=== PATIENT | female | born 1960 | race Caucasian/White ===

== ENCOUNTER 2017-08-10 14:52 | Inpatient (IN) | payer OTHER ==
[2017-08-10 15:10] LABS: Glucose,Whole Blood 487 mg/dL (75-99)
[2017-08-10] MEDS ORDERED: SODIUM CHLORIDE 0.9% 2,000 ML IV ONE (15:26)
[2017-08-10] MEDS ORDERED: POTASSIUM BICARBONATE/CIT AC 20 MEQ TABLET.EFF PO ONE (15:29)
[2017-08-10] MEDS ORDERED: SODIUM CHLORIDE 0.9% 1,000 ML IV SCH (15:30)
--- NOTE | 2017-08-10 15:39 | ED ---
General Adult HPI - General Chief complaint: Recheck/Abnormal Lab/Rx Stated complaint: glucose level, DKA Time Seen by Provider: 08/10/17 15:18 Source: patient, EMS Mode of arrival: EMS Limitations: no limitations - History of Present Illness Initial comments: 27 years O female was transferred from the [facility], ER doctor Dr. Love stated that her sugar was greater than 1000 that she has no history of for diabetes in the past hemoglobin A1c done back in October year was 5.8 she recently had a surgery done September she had some teeth extraction she was fine until yesterday when she felt weak and dizzy and she was seen in the [place] over that they noticed that sugar was greater than 1000 white count was greater than 15,000 chest x-ray was unremarkable creatinine was 1.8 this started on insulin infusion give her some fluids along with the antibiotics bicarb with a was 4 in pH was 7.01 to that EKG had some changes this spoke to Dr. Douglas when we did the EKG INR department but didn't see any ST elevation there is a ST depression in lead V4 V5 and V6 along with the V2 and V3 she denies any headaches he just feels thirsty no chest pain or shortness of breath she had abdominal pain earlier but now she feels better - Related Data Home Medications Medication Instructions Recorded Confirmed Amoxicillin 875 mg PO Q12HR 08/10/17 08/10/17 Ibuprofen [Motrin] 800 mg PO BID PRN 08/10/17 08/10/17 Allergies Allergy/AdvReac Type Severity Reaction Status Date / Time No Known Allergies Allergy Verified 08/10/17 15:54 Review of Systems ROS Statement: Those systems with pertinent positive or pertinent negative responses have been documented in the HPI. ROS Other: All systems not noted in ROS Statement are negative. Past Medical History Past Medical History: Hyperlipidemia, Hypertension History of Any Multi-Drug Resistant Organisms: None Reported Past Surgical History: No Surgical Hx Reported Additional Past Surgical History / Comment(s): dental surgery Past Psychological History: No Psychological Hx Reported Smoking Status: Former smoker Past Alcohol Use History: None Reported Past Drug Use History: None Reported General Exam - General Exam Comments Initial Comments: General: The patient is awake , I could smell ketones on her breath she looks dehydrated GCS is 15 Skin: Skin is warm and dry and no rashes or lesions are noted. Eye: Pupils are equal, round and reactive to light, extra-ocular movements are intact; there is normal conjunctiva bilaterally. Ears, nose, mouth and throat: There are moist mucous membranes and no oral lesions. Neck: The neck is supple, there is no tenderness or JVD. Cardiovascular: There is sinus tachycardia Respiratory: To auscultation bilateral, no wheezing no rhonchi no distress respiratory park noticed Gastrointestinal: Soft, non-distended, non-tender abdomen without masses or organomegaly noted. There is no rebound or guarding present. Bowel sounds are unremarkable. Back: There is no tenderness to palpation in the midline. There is no obvious deformity. Musculoskeletal: Normal ROM, no tenderness, There is no pedal edema. There is no calf tenderness or swelling. No cords were appreciated. Neurological: CN II-XII intact, Cranial nerves III through XII are intact. There are no obvious motor or sensory deficits. Coordination appears grossly intact. Speech is normal. Psychiatric: Cooperative, appropriate mood & affect, normal judgment. Limitations: no limitations Course Vital Signs 08/10/17 08/10/17 08/10/17 14:59 15:16 15:43 Temperature 97.9 F Pulse Rate 112 H 106 H Pulse Rate [ 112 H Sketcher ] Respiratory 20 22 22 Rate Blood Pressure 125/75 O2 Sat by Pulse 99 Oximetry I am EKG is sinus tachycardia ventricular rate is 110 FL interval is 126 QRS duration is 74 QT/QTC 364/492 review of this EKG there is a ST depression in V2 V3 V4 V5 and V6 no STEMI noticed, repeat ABGs are somewhat better pH is 7.22 bicarb is 7 this time and rest of the labs are still pending [facility] and spoke with the DR Roopa Johnson,, have paged Dr. Mcdonough would need to go to the ICU Medical Decision Making - Lab Data Lab Results 08/10/17 08/10/17 08/10/17 Range/Units 15:01 15:30 15:49 Sample Site r brac ABG pH 7.22 L (7.35-7.45) ABG pCO2 17 L* (35-45) mmHg ABG pO2 105 (83-108) mmHg ABG HCO3 7 L* (21-25) mmol/L ABG Total CO2 8 L (19-24) mmol/L ABG O2 Saturation 98.7 H (94-97) % ABG Base Excess -20.6 mmol/L Chris Test Yes FiO2 21 % POC Glucose (mg/dL) 487 H (75-99) mg/dL POC Glu [employer] ID Nolberto Davis Urine Color Light Yellow Urine Appearance Clear (Clear) Urine pH 5.0 (5.0-8.0) Ur Specific [place] 1.023 (1.001-1.035) Urine Protein 1+ H (Negative) Urine Glucose (UA) 4+ H (Negative) Urine Blood Moderate H (Negative) Urine Nitrite Negative (Negative) Urine Bilirubin Negative (Negative) Urine Urobilinogen <2.0 (<2.0) mg/dL Ur Leukocyte Esterase Negative (Negative) Urine RBC 18 H (0-5) /hpf Urine WBC 1 (0-5) /hpf Urine Bacteria Rare H (None) /hpf Urine Mucus Rare H (None) /hpf Disposition Clinical Impression: Diabetic ketoacidosis Disposition: ADMITTED IP TO THIS [facility] Condition: Good Referrals: None,Stated [REFERRING] - 1-2 days
[2017-08-10 15:54] LABS: ABG Base Excess -20.6 mmol/L; ABG Oxygen Saturation 98.7 % (94-97); ABG PH 7.22 (7.35-7.45); ABG PO2 105 mmHg (83-108); ABG TCO2 8 mmol/L (19-24)
[2017-08-10 15:55] LABS: Appearance,Urine Clear (Clear); Bacteria,Urine Rare /hpf; Bilirubin,Urine Negative (Negative); Blood,Urine Moderate (Negative); Color,Urine Light Yellow; Glucose,Urine (UA) 4+ (Negative); Leukocyte Esterase,Urine Negative (Negative); Mucus,Urine Rare /hpf; Nitrite,Urine Negative (Negative); Protein,Urine 1+ (Negative); RBC,Urine 18 /hpf (0-5); Specific Gravity,Urine 1.023 (1.001-1.035); Urobilinogen,Urine <2.0 mg/dL (<2.0); WBC,Urine 1 /hpf (0-5)
[2017-08-10 15:55] LABS: ABG HCO3 7 mmol/L (21-25); ABG PCO2 17 mmHg (35-45)
[2017-08-10] MEDS: INSULIN REGULAR 100 UNIT in SODIUM CHLORIDE 0.9% 100 ML IV ONE (16:01)
[2017-08-10 16:07] LABS: Glucose,Whole Blood 431 mg/dL (75-99)
[2017-08-10] MEDS ORDERED: NALOXONE 0.4 MG/ML 1 ML VIAL IV PRN (16:08)
[2017-08-10] MEDS ORDERED: ACETAMINOPHEN TAB 325 MG TAB PO PRN (16:08)
[2017-08-10 16:11] LABS: Ketones,Urine 4+ (Negative)
[2017-08-10 16:25] LABS: Albumin 3.8 g/dL (3.5-5.0); Calcium 8.7 mg/dL (8.4-10.2); Potassium 4.5 mmol/L (3.5-5.1); Total Bilirubin 0.3 mg/dL (0.2-1.3); Total Protein 6.4 g/dL (6.3-8.2)
[2017-08-10 16:37] LABS: Magnesium 2.8 mg/dL (1.6-2.3); Phosphorus 2.4 mg/dL (2.5-4.5)
[2017-08-10 16:59] LABS: Glucose,Whole Blood 429 mg/dL (75-99)
[2017-08-10 16:59] LABS: Basophils % (A) 0 %; Eosinophils % (A) 0 %; HCT 47.7 % (34.0-46.0); HGB 15.7 gm/dL (11.4-16.0); Lymphocytes # (A) 1.5 k/uL (1.0-4.8); Lymphocytes % (A) 12 %; MCH 30.2 pg (25.0-35.0); MCHC 32.9 g/dL (31.0-37.0); MCV 91.9 fL (80.0-100.0); Mean Platelet Volume 8.2; Monocytes # (A) 0.9 k/uL (0-1.0); Monocytes % (A) 7 %; Neutrophils # (A) 10.4 k/uL (1.3-7.7); Neutrophils % (A) 80 %; Platelet Count 191 k/uL (150-450); RBC 5.19 m/uL (3.80-5.40); RDW 14.3 % (11.5-15.5); WBC 12.9 k/uL (3.8-10.6)
[2017-08-10] MEDS: SODIUM CHLORIDE 0.45% 1,000 ML IV SCH ×2 (17:00→23:33)
[2017-08-10 17:21] LABS: Glucose,Whole Blood 401 mg/dL (75-99)
[2017-08-10] MEDS ORDERED: SODIUM CHLORIDE 0.45% 1,000 ML IV SCH (17:30)
[2017-08-10 18:44] LABS: Glucose,Whole Blood 370 mg/dL (75-99)
[2017-08-10] MEDS: PANTOPRAZOLE 40 MG/10 ML VIAL IV SCH (19:09)
[2017-08-10] MEDS: HEPARIN SODIUM,PORCINE 5,000 UNIT/ML 1 ML VIAL SQ SCH ×2 (19:09→23:53)
[2017-08-10 20:02] LABS: Glucose,Whole Blood 315 mg/dL (75-99)
--- NOTE | 2017-08-10 20:20 | HP ---
HISTORY AND PHYSICAL CHIEF COMPLAINTS: High blood sugars. HISTORY OF PRESENT ILLNESS: This 57-year-old woman with a past medical history of multiple medical problems, including hypertension, hyperlipidemia being followed by Dr. Enciso in the outpatient setting was admitted with high blood sugar to [facility]. The sugars are more than 1000 and hemoglobin A1c last October was about 5.8. The patient is feeling weak and dizzy. The patient is on insulin drip. Patient also has features of diabetic ketoacidosis. Patient also had EKG ST-T changes and patient admitted for further evaluation and treatment there is no history of any fever, rigors, chills. No history of headache, loss of consciousness, seizures at this time. PAST MEDICAL HISTORY: History of hypertension, hyperlipidemia, history of dental surgery recently. Patient is on amoxicillin. HOME MEDICATIONS: 1. Motrin 800 mg b.i.d. p.r.n. 2. Amoxicillin 875 mg p.o. b.i.d. ALLERGIES: None. FAMILY HISTORY: No history of heart disease or strokes. SOCIAL HISTORY: Remote history of smoking. No history of alcohol intake. REVIEW OF SYSTEMS: ENT: Mentioned earlier. CARDIOVASCULAR: No angina, palpitations. RESPIRATORY: No cough or hemoptysis. GI: No nausea or vomiting. : No dysuria. NERVOUS: No numbness or weakness. ALLERGY/IMMUNOLOGY: No asthma or hay fever. MUSCULOSKELETAL: As mentioned earlier. HEMATOLOGY/ONCOLOGY: No history of anemia. ENDOCRINE: Diabetes mellitus. CONSTITUTIONAL: As mentioned earlier. DERMATOLOGY: Negative. RHEUMATOLOGY: Negative. PSYCHIATRY: As mentioned earlier. PHYSICAL EXAMINATION: Alert, oriented x3. Pulse 101, blood pressure 102/66, respirations 28, temperature 97.7, pulse ox 97% on room air. HEENT: Conjunctivae normal. Oral mucosa moist. NECK: No jugular venous distention. No carotid bruits. No lymph node enlargement. CARDIOVASCULAR: S1, S2 muffled. RESPIRATORY: Breath sounds diminished in the bases. A few scattered rhonchi. No crackles. ABDOMEN: Soft, nontender. No mass palpable. LEGS: No edema. No swelling. NERVOUS SYSTEM: Higher functions as mentioned earlier. Moves all 4 limbs. No focal motor or sensory deficits. LYMPHATIC: No lymphadenopathy in neck or axillae. SKIN: No ulcer, rash or bleeding. LABS: WBC 12.9. ABG is 7.2. Sodium is 163; otherwise, glucose 511 and magnesium 2.8. AST 72, ALT is 257. ASSESSMENT: 1. Acute diabetic ketoacidosis as well as new onset poorly-controlled diabetes mellitus type 2. 2. Metabolic acidosis. 3. Hypernatremia, dehydration. 4. ST-T changes on the EKG. 5. Increased creatinine with mild acute renal failure, possibly prerenal acute tubular necrosis. 6. Increased AST, ALT of undetermined etiology. 7. Hypernatremia. 8. Increased WBC. 9. History of hypertension. 10.Hyperlipidemia. 11.History of recent oral surgery. RECOMMENDATION AND DISCUSSION: In this 57-year-old woman who presented with multiple complex medical issues, will monitor the patient closely. Continue with the current medical management and symptomatic treatment. Otherwise will continue with the DKA protocol. Repeat labs. Continue the 0.9 at half normal. Would also recommend this also. I would also recommend an EKG as well as cardiology consultation for ST-T changes in the EKG. Otherwise, the initial troponin is negative. I would also recommend repeat labs. DVT prophylaxis and proton pump inhibitors and repeat chest x-ray in the morning. Resume the antibiotics as before. Prognosis guarded because of multiple complex medical issues and further recommendations were discussed with the family at length. A copy of this dictation will be forwarded to Dr. Enciso, who is the primary physician. TIFFANIE / KAHLILN: [id number] /
[2017-08-10] MEDS: AMOXICILLIN 875 MG TAB PO SCH (21:05)
[2017-08-10 21:09] LABS: Glucose,Whole Blood 269 mg/dL (75-99)
[2017-08-10 21:31] LABS: Anion Gap 21 mmol/L; Blood Urea Nitrogen 28 mg/dL (7-17); Calcium 8.5 mg/dL (8.4-10.2); Carbon Dioxide 14 mmol/L (22-30); Glucose 305 mg/dL (74-99); Magnesium 2.6 mg/dL (1.6-2.3); Phosphorus 1.8 mg/dL (2.5-4.5); Potassium 4.2 mmol/L (3.5-5.1); Sodium 161 mmol/L (137-145)
[2017-08-10 21:32] LABS: Chloride 126 mmol/L (98-107)
[2017-08-10 22:32] LABS: Glucose,Whole Blood 244 mg/dL (75-99)
[2017-08-10 23:03] LABS: Hemoglobin A1C 11.4 % (4.0-6.0)
[2017-08-10 23:09] LABS: Glucose,Whole Blood 185 mg/dL (75-99)
[2017-08-10] MEDS: D5-0.45% NACL WITH KCL 20MEQ/L 1,000 ML IV SCH (23:33)
[2017-08-10 23:59] LABS: Glucose,Whole Blood 169 mg/dL (75-99)
[2017-08-11 00:41] LABS: Anion Gap 19 mmol/L; Blood Urea Nitrogen 28 mg/dL (7-17); Calcium 8.7 mg/dL (8.4-10.2); Carbon Dioxide 16 mmol/L (22-30); Glucose 187 mg/dL (74-99); Magnesium 2.5 mg/dL (1.6-2.3); Potassium 4.1 mmol/L (3.5-5.1)
[2017-08-11 00:44] LABS: Chloride 128 mmol/L (98-107); Sodium 163 mmol/L (137-145)
[2017-08-11 01:25] LABS: Glucose,Whole Blood 173 mg/dL (75-99)
[2017-08-11 02:19] LABS: Glucose,Whole Blood 156 mg/dL (75-99)
[2017-08-11] MEDS: SODIUM CHLORIDE 0.45% 1,000 ML IV SCH ×2 (02:45→07:25)
[2017-08-11] MEDS: POTASSIUM PHOSPHATE 10 MMOL in SODIUM CHLORIDE 0.9% 250 ML IV SCH ×2 (04:24→06:30)
[2017-08-11 04:28] LABS: Glucose,Whole Blood 100 mg/dL (75-99)
[2017-08-11] MEDS: D5-0.45% NACL WITH KCL 20MEQ/L 1,000 ML IV SCH (04:30)
[2017-08-11] MEDS: INSULIN REGULAR 100 UNIT in SODIUM CHLORIDE 0.9% 100 ML IV ONE (04:30)
[2017-08-11 05:09] LABS: Glucose,Whole Blood 115 mg/dL (75-99)
[2017-08-11 05:23] LABS: Basophils % (A) 0 %; Eosinophils # (A) 0.1 k/uL (0-0.7); Eosinophils % (A) 1 %; HCT 45.3 % (34.0-46.0); HGB 14.8 gm/dL (11.4-16.0); Lymphocytes # (A) 1.7 k/uL (1.0-4.8); Lymphocytes % (A) 17 %; MCH 29.4 pg (25.0-35.0); MCHC 32.7 g/dL (31.0-37.0); MCV 89.8 fL (80.0-100.0); Mean Platelet Volume 7.6; Monocytes # (A) 0.5 k/uL (0-1.0); Monocytes % (A) 4 %; Neutrophils # (A) 7.8 k/uL (1.3-7.7); Neutrophils % (A) 76 %; Platelet Count 163 k/uL (150-450); RBC 5.04 m/uL (3.80-5.40); RDW 14.5 % (11.5-15.5); WBC 10.3 k/uL (3.8-10.6)
[2017-08-11 05:35] LABS: Anion Gap 16 mmol/L; Blood Urea Nitrogen 26 mg/dL (7-17); Calcium 8.5 mg/dL (8.4-10.2); Carbon Dioxide 17 mmol/L (22-30); Glucose 126 mg/dL (74-99); Magnesium 2.5 mg/dL (1.6-2.3); Phosphorus 2.2 mg/dL (2.5-4.5); Potassium 4.1 mmol/L (3.5-5.1)
[2017-08-11 05:46] LABS: Chloride 128 mmol/L (98-107); Sodium 161 mmol/L (137-145)
[2017-08-11 06:28] LABS: Glucose,Whole Blood 134 mg/dL (75-99)
--- NOTE | 2017-08-11 07:16 | XR ---
EXAMINATION TYPE: XR chest 1V portable DATE OF EXAM: 08/11/2017 HISTORY: chf. REFERENCE: NONE. FINDINGS: The lungs are clear. Pleural spaces are clear. The heart is not enlarged. IMPRESSION: NO ACTIVE INTRATHORACIC DISEASE.
[2017-08-11 07:23] LABS: Glucose,Whole Blood 182 mg/dL (75-99)
[2017-08-11 07:59] LABS: ALT 296 U/L (9-52); AST 129 U/L (14-36); Albumin 3.1 g/dL (3.5-5.0); Alkaline Phosphatase 159 U/L (38-126); Anion Gap 15 mmol/L; Blood Urea Nitrogen 27 mg/dL (7-17); Calcium 8.4 mg/dL (8.4-10.2); Carbon Dioxide 15 mmol/L (22-30); Glucose 127 mg/dL (74-99); Potassium 4.1 mmol/L (3.5-5.1); Total Bilirubin 0.3 mg/dL (0.2-1.3); Total Protein 5.8 g/dL (6.3-8.2)
[2017-08-11 08:04] LABS: Chloride 131 mmol/L (98-107); Sodium 161 mmol/L (137-145)
[2017-08-11 08:19] LABS: Glucose,Whole Blood 240 mg/dL (75-99)
[2017-08-11 09:09] LABS: Glucose,Whole Blood 293 mg/dL (75-99)
[2017-08-11] MEDS: HEPARIN SODIUM,PORCINE 5,000 UNIT/ML 1 ML VIAL SQ SCH ×2 (09:09→15:27)
[2017-08-11] MEDS: AMOXICILLIN 875 MG TAB PO SCH ×2 (09:09→20:19)
[2017-08-11] MEDS: PANTOPRAZOLE 40 MG/10 ML VIAL IV SCH (09:11)
[2017-08-11 11:23] LABS: Glucose,Whole Blood 322 mg/dL (75-99)
--- NOTE | 2017-08-11 12:32 | P.CRDCN ---
History of Present Illness Consult date: 08/11/17 Chief complaint: Generalized weakness History of present illness: This is a pleasant 57-year-old female patient from [facility] was brought to the hospital and was admitted with diabetes ketoacidosis. The patient was just not feeling well where she was feeling tired and fatigued and also she was weak. She presented to the hospital and was diagnosed with diabetes ketoacidosis and she is currently in the intensive care unit. The patient is not aware of any prior history of coronary artery disease and the diabetes is known to her. We get involved in the care of the patient because of abnormal EKG. 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 More importantly, the patient did not have any symptoms of chest pain or discomfort nor difficulty breathing nor dizziness or lightheadedness. The cardiac enzymes were checked and came in to be unremarkable. Currently she is feeling overall better. She continues to be asymptomatic from a cardiovascular standpoint. Past Medical History Past Medical History: Hyperlipidemia, Hypertension History of Any Multi-Drug Resistant Organisms: None Reported Past Surgical History: No Surgical Hx Reported Additional Past Surgical History / Comment(s): dental surgery Smoking Status: Former smoker - Past Family History Sister(s) Family Medical History: Diabetes Mellitus Medications and Allergies Home Medications Medication Instructions Recorded Confirmed Type Amoxicillin 875 mg PO Q12HR 08/10/17 08/10/17 History Ibuprofen [Motrin] 800 mg PO BID PRN 08/10/17 08/10/17 History Allergies Allergy/AdvReac Type Severity Reaction Status Date / Time No Known Allergies Allergy Verified 08/10/17 15:54 Physical Exam Vitals: Vital Signs Temp Pulse Pulse Resp BP Pulse Ox 08/11/17 11:00 81 21 84/40 97 08/11/17 10:00 75 17 85/41 99 08/11/17 09:00 81 24 96/44 96 08/11/17 08:00 97.9 F 84 21 83/46 99 08/11/17 07:00 81 11 L 119/71 100 08/11/17 06:00 78 25 H 94/48 96 08/11/17 05:00 87 22 86/54 98 08/11/17 04:00 98.6 F 86 22 94/53 98 08/11/17 03:00 86 16 100/73 97 08/11/17 02:00 89 20 107/49 97 08/11/17 01:00 93 23 106/55 96 08/11/17 00:01 102 H 20 110/46 98 08/11/17 00:00 98.5 F 102 H 10 L 110/46 99 08/10/17 23:30 98 22 95/54 08/10/17 23:00 96 28 H 96/48 08/10/17 22:30 92 17 104/55 08/10/17 22:00 90 13 100/47 08/10/17 21:00 95 23 105/54 08/10/17 20:00 109 H 13 105/62 91 L 08/10/17 19:00 97 24 112/51 98 08/10/17 18:45 96 18 112/53 99 08/10/17 18:30 98 19 99 08/10/17 18:15 101 H 28 H 99 08/10/17 18:00 97.7 F 104 H 26 H 102/66 100 08/10/17 17:50 97.7 F 103 H 24 102/66 100 08/10/17 17:06 97.2 F L 103 H 20 114/56 99 08/10/17 17:00 112 H 19 08/10/17 16:11 107 H 20 98 08/10/17 15:43 106 H 22 08/10/17 15:16 112 H 22 08/10/17 14:59 97.9 F 112 H 20 125/75 99 Intake and Output 08/10/17 08/11/17 08/11/17 22:59 06:59 14:59 Intake Total 7.270 1509.253 773.028 Output Total 998 220 340 Balance 6420.140 2144.253 433.028 Intake: IV 2000 1450 750 D5-0.45% NaCl with KCl 1050 750 20Meq/l 1,000 ml @ 150 mls/hr IV .Q6H40M [facility] Rx# :[id number] Potassium Phosphate 10 250 mmol In Sodium Chloride 0 .9% 250 ml @ 125 mls/hr IV Q2H [facility] Rx#:[id number] Sodium Chloride 0.45% 1, 1000 150 000 ml @ 200 mls/hr IV . Q5H [facility] Rx#:[id number] Sodium Chloride 0.9% 2, 1000 000 ml @ 999 mls/hr IV . Q2H1M ONE Rx#:[id number] Intake, IV Titration 27.270 59.253 23.028 Amount Insulin Regular 100 unit 27.270 59.253 23.028 In Sodium Chloride 0.9% 100 ml @ 3 UNIT/HR 3.03 mls/hr IV .Q24H ONE Rx#: [id number] Output: Urine 998 220 340 Other: Voiding Method Indwelling Catheter Indwelling Catheter Indwelling Catheter Weight 68.7 kg 70.5 kg - Constitutional General appearance: no acute distress - Respiratory Respiratory: bilateral: CTA - Cardiovascular Rhythm: regular Heart sounds: normal: S1, S2 Results 08/11/17 05:00 08/11/17 05:00 Cardiac Enzymes 08/10/17 08/10/17 08/11/17 Range/Units 15:59 15:59 05:00 AST 72 H 129 H (14-36) U/L Troponin I <0.012 (0.000-0.034) ng/mL CBC 08/10/17 08/11/17 Range/Units 15:59 05:00 WBC 12.9 H 10.3 (3.8-10.6) k/uL RBC 5.19 5.04 (3.80-5.40) m/uL Hgb 15.7 14.8 (11.4-16.0) gm/dL Hct 47.7 H 45.3 (34.0-46.0) % Plt Count 191 163 (150-450) k/uL Comprehensive Metabolic Panel 08/10/17 08/10/17 08/11/17 Range/Units 15:59 20:45 00:01 Sodium 163 H* 161 H* 163 H* (137-145) mmol/L Potassium 4.5 4.2 4.1 (3.5-5.1) mmol/L Chloride 124 H* 126 H* 128 H* (98-107) mmol/L Carbon Dioxide 9 L* 14 L 16 L (22-30) mmol/L BUN 30 H 28 H 28 H (7-17) mg/dL Creatinine 1.11 H 0.80 0.70 (0.52-1.04) mg/dL Glucose 511 H* 305 H 187 H (74-99) mg/dL Calcium 8.7 8.5 8.7 (8.4-10.2) mg/dL AST 72 H (14-36) U/L ALT 257 H (9-52) U/L Alkaline Phosphatase 177 H (38-126) U/L Total Protein 6.4 (6.3-8.2) g/dL Albumin 3.8 (3.5-5.0) g/dL 08/11/17 08/11/17 Range/Units 05:00 05:00 Sodium 161 H* 161 H* (137-145) mmol/L Potassium 4.1 4.1 (3.5-5.1) mmol/L Chloride 128 H* 131 H* (98-107) mmol/L Carbon Dioxide 17 L 15 L (22-30) mmol/L BUN 26 H 27 H (7-17) mg/dL Creatinine 0.60 0.65 (0.52-1.04) mg/dL Glucose 126 H 127 H (74-99) mg/dL Calcium 8.5 8.4 (8.4-10.2) mg/dL AST 129 H (14-36) U/L ALT 296 H (9-52) U/L Alkaline Phosphatase 159 H (38-126) U/L Total Protein 5.8 L (6.3-8.2) g/dL Albumin 3.1 L (3.5-5.0) g/dL Current Medications Generic Name Dose Route Start Last Admin Trade Name Freq PRN Reason Stop Dose Admin Acetaminophen 650 mg 08/10/17 16:08 Tylenol Tab PO Q4HR PRN Fever and/or Mild Pain Amoxicillin 875 mg 08/10/17 21:00 08/11/17 09:09 Amoxicillin PO 875 mg Q12HR [facility] Administration Heparin Sodium (Porcine) 5,000 unit 08/10/17 18:30 08/11/17 09:09 Heparin SQ 5,000 unit Q8HR [facility] Administration Insulin Human Regular 100 unit 101 mls @ 3.03 mls/hr 08/10/17 15:30 08/11/17 11:24 / Sodium Chloride IV 08/11/17 15:29 3 unit/hr .Q24H ONE 3.03 mls/hr 3 UNIT/HR Infusion Potassium Chloride/Dextrose/Sod Cl 1,000 mls @ 150 mls/hr 08/10/17 22:45 05/30 04:30 D5%-1/2ns-Kcl 20 Meq/L Iv Solution IV 150 mls/hr .Q6H40M [facility] Administration Naloxone HCl 0.2 mg 08/10/17 16:08 Narcan IV Q2M PRN Opioid Reversal Pantoprazole Sodium 40 mg 08/10/17 18:30 08/11/17 09:11 Protonix IV 40 mg DAILY [facility] Administration Intake and Output 08/10/17 08/11/17 08/11/17 22:59 06:59 14:59 Intake Total 2027.270 1509.253 773.028 Output Total 998 220 340 Balance 3219.045 7842.253 433.028 Intake: IV 2000 1450 750 D5-0.45% NaCl with KCl 1050 750 20Meq/l 1,000 ml @ 150 mls/hr IV .Q6H40M [facility] Rx# :[id number] Potassium Phosphate 10 250 mmol In Sodium Chloride 0 .9% 250 ml @ 125 mls/hr IV Q2H [facility] Rx#:[id number] Sodium Chloride 0.45% 1, 1000 150 000 ml @ 200 mls/hr IV . Q5H [facility] Rx#:[id number] Sodium Chloride 0.9% 2, 1000 000 ml @ 999 mls/hr IV . Q2H1M ONE Rx#:[id number] Intake, IV Titration 27.270 59.253 23.028 Amount Insulin Regular 100 unit 27.270 59.253 23.028 In Sodium Chloride 0.9% 100 ml @ 3 UNIT/HR 3.03 mls/hr IV .Q24H ONE Rx#: [id number] Output: Urine 998 220 340 Other: Voiding Method Indwelling Catheter Indwelling Catheter Indwelling Catheter Weight 68.7 kg 70.5 kg 08/11/17 05:00 08/11/17 05:00 Assessment and Plan Assessment: Assessment #1 diabetes ketoacidosis #2 abnormal EKG showing possible old NM #3 history of smoking and currently she is not smoking. Plan #1 rule out acute coronary event. We'll obtain 2 more sets of serial cardiac enzymes #2 obtain an echocardiogram was Doppler #3 follow-up with the patient. Thank you for allowing us participate in her care
[2017-08-11 13:10] LABS: Glucose,Whole Blood 359 mg/dL (75-99)
[2017-08-11 13:27] LABS: Anion Gap 14 mmol/L; Blood Urea Nitrogen 19 mg/dL (7-17); Calcium 7.9 mg/dL (8.4-10.2); Carbon Dioxide 20 mmol/L (22-30); Glucose 342 mg/dL (74-99); Phosphorus 1.9 mg/dL (2.5-4.5); Potassium 3.7 mmol/L (3.5-5.1); Sodium 154 mmol/L (137-145)
[2017-08-11 13:28] LABS: Chloride 120 mmol/L (98-107)
[2017-08-11 14:14] LABS: Glucose,Whole Blood 398 mg/dL (75-99)
[2017-08-11] MEDS ORDERED: Potassium Replacement Protocol 1 EACH MISC MISCELLANE PRN ×2 (14:29→15:05)
[2017-08-11] MEDS ORDERED: Phosphorus Replacement Protoco 1 EACH MISC MISCELLANE PRN (14:30)
[2017-08-11] MEDS: POTASSIUM CHLORIDE ER 20 MEQ TAB.ER PO ONE ×2 (15:02→15:05)
[2017-08-11] MEDS: SODIUM PHOSPHATE 10 MMOL in SODIUM CHLORIDE 0.9% 250 ML IVPB SCH ×2 (15:03→17:51)
[2017-08-11 15:34] LABS: Glucose,Whole Blood 405 mg/dL (75-99)
[2017-08-11] MEDS ORDERED: POTASSIUM BICARBONATE/CIT AC 20 MEQ TABLET.EFF NG-TUBE SCH (16:00)
[2017-08-11 17:19] LABS: Glucose,Whole Blood 315 mg/dL (75-99)
[2017-08-11] MEDS ORDERED: Magnesium Replacement Protocol 1 EACH MISC MISCELLANE PRN (17:48)
[2017-08-11] MEDS ORDERED: INSULIN REGULAR 100 UNIT in SODIUM CHLORIDE 0.9% 100 ML IV SCH (18:00)
[2017-08-11 18:56] LABS: Glucose,Whole Blood 323 mg/dL (75-99)
[2017-08-11 19:45] LABS: Anion Gap 11 mmol/L; Blood Urea Nitrogen 16 mg/dL (7-17); Calcium 7.9 mg/dL (8.4-10.2); Carbon Dioxide 19 mmol/L (22-30); Glucose 328 mg/dL (74-99); Phosphorus 2.6 mg/dL (2.5-4.5); Potassium 3.9 mmol/L (3.5-5.1); Sodium 151 mmol/L (137-145)
[2017-08-11 19:51] LABS: Chloride 121 mmol/L (98-107)
[2017-08-11 19:53] LABS: Glucose,Whole Blood 283 mg/dL (75-99)
[2017-08-11 21:17] LABS: Glucose,Whole Blood 185 mg/dL (75-99)
[2017-08-11] MEDS ORDERED: POTASSIUM CHLORIDE ER 20 MEQ TAB.ER PO SCH (22:00)
[2017-08-11 22:24] LABS: Glucose,Whole Blood 123 mg/dL (75-99)
[2017-08-11 23:27] LABS: Glucose,Whole Blood 107 mg/dL (75-99)
[2017-08-12 00:30] LABS: Glucose,Whole Blood 111 mg/dL (75-99)
[2017-08-12] MEDS: HEPARIN SODIUM,PORCINE 5,000 UNIT/ML 1 ML VIAL SQ SCH ×4 (00:33→23:10)
[2017-08-12 01:26] LABS: Glucose,Whole Blood 131 mg/dL (75-99)
[2017-08-12 02:20] LABS: Basophils % (A) 0 %; Eosinophils # (A) 0.1 k/uL (0-0.7); Eosinophils % (A) 2 %; HCT 39.8 % (34.0-46.0); HGB 13.3 gm/dL (11.4-16.0); Lymphocytes # (A) 1.4 k/uL (1.0-4.8); Lymphocytes % (A) 28 %; MCH 30.2 pg (25.0-35.0); MCHC 33.3 g/dL (31.0-37.0); MCV 90.7 fL (80.0-100.0); Monocytes # (A) 0.2 k/uL (0-1.0); Monocytes % (A) 4 %; Neutrophils # (A) 3.1 k/uL (1.3-7.7); Neutrophils % (A) 64 %; RBC 4.39 m/uL (3.80-5.40); RDW 14.5 % (11.5-15.5); WBC 4.9 k/uL (3.8-10.6)
[2017-08-12 02:32] LABS: Glucose,Whole Blood 163 mg/dL (75-99)
[2017-08-12 02:37] LABS: Anion Gap 7 mmol/L; Calcium 8.1 mg/dL (8.4-10.2); Carbon Dioxide 21 mmol/L (22-30); Glucose 154 mg/dL (74-99); Sodium 151 mmol/L (137-145)
[2017-08-12 02:38] LABS: Blood Urea Nitrogen 13 mg/dL (7-17); Chloride 123 mmol/L (98-107); Potassium 4.8 mmol/L (3.5-5.1)
[2017-08-12 02:52] LABS: Platelet Count 97 k/uL (150-450)
[2017-08-12] MEDS ORDERED: D5-0.45% NACL WITH KCL 20MEQ/L 1,000 ML IV SCH (03:00)
[2017-08-12 03:21] LABS: Magnesium 2.1 mg/dL (1.6-2.3); Phosphorus 2.5 mg/dL (2.5-4.5)
[2017-08-12 07:19] LABS: Glucose,Whole Blood 278 mg/dL (75-99)
[2017-08-12] MEDS: PANTOPRAZOLE 40 MG/10 ML VIAL IV SCH (07:37)
[2017-08-12] MEDS ORDERED: INSULIN ASPART 100 UNIT/ML 1 ML 10 ML VIAL SQ ONE (08:38)
[2017-08-12] MEDS: INSULIN ASPART 100 UNIT/ML 1 ML 10 ML VIAL SQ SCH ×6 (08:40→20:56)
[2017-08-12] MEDS: D5-0.45% NACL WITH KCL 20MEQ/L 1,000 ML IV SCH ×2 (08:43→08:44)
[2017-08-12] MEDS: AMOXICILLIN 875 MG TAB PO SCH ×2 (08:55→20:56)
--- NOTE | 2017-08-12 08:59 | US ---
EXAMINATION TYPE: US abdomen limited DATE OF EXAM: 08/12/2017 COMPARISON: NONE CLINICAL HISTORY: 57-year-old female elevated enzymes.. TECHNIQUE: Multiple sonographic images of the right upper quadrant are obtained. 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 Round hypoechoic area visualized within the pancreat ic body measuring 0.7 x 0.4 x 1.0 cm. There seems to be some posterior through transmission. Liver: Upper limits of normal in size, echogenic and attenuating. This secondarily limits assessment for focal lesion. Gallbladder: Appears contracted with numerous calculi packing the gallbladder lumen. No definite robert cholecystic fluid on the saved images. Evidence for sonographic Watkins's sign: No CBD: wnl as visualized, distal portion is obscured by bowel gas Right Kidney: No hydronephrosis. Lower pole obscured by bowel gas IMPRESSION: 1. At least moderate hepatic steatosis. Correlate with LFTs, lipid profile, and patient risk factors. 2. A 1 cm lesion within the pancreatic body. If this is cystic, some differential considerations incl ude a serous cystadenoma, sequela of prior pancreatitis, and dilated side branch radical/small IPMN. Remains indeterminate on this study. Recommend 6 month follow-up to reassess. If any growth or suspic ious changes are noted, further MRI evaluation would be recommended. 3. Extensive cholelithiasis. No ancillary findings of acute cholecystitis.
--- NOTE | 2017-08-12 09:31 | P.PN ---
Subjective Progress Note Date: 08/12/17 Principal diagnosis: Diabetes ketoacidosis This is a pleasant 57-year-old female patient from [facility] was brought to the hospital and was admitted with diabetes ketoacidosis. The patient was just not feeling well where she was feeling tired and fatigued and also she was weak. She presented to the hospital and was diagnosed with diabetes ketoacidosis and she is currently in the intensive care unit. The patient is not aware of any prior history of coronary artery disease and the diabetes is known to her. We get involved in the care of the patient because of abnormal EKG. 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 More importantly, the patient did not have any symptoms of chest pain or discomfort nor difficulty breathing nor dizziness or lightheadedness. The cardiac enzymes were checked and came in to be unremarkable. Currently she is feeling overall better. She continues to be asymptomatic from a cardiovascular standpoint. Possibly she is going to be transferred out of the intensive care unit later on today. Objective - Vital Signs Vital signs: Vital Signs Temp 98.9 F 08/12/17 08:00 Pulse 92 08/12/17 09:00 Resp 18 08/12/17 09:00 BP 118/51 08/12/17 08:00 Pulse Ox 99 08/12/17 09:00 Intake & Output 08/11/17 08/12/17 08/12/17 18:59 06:59 18:59 Intake Total 2589.154 1392.651 100 Output Total 865 528 305 Balance 1724.154 864.651 -205 Weight 72.8 kg Intake: IV 2300 1350 100 D5-0.45% NaCl with KCl 1800 1350 100 20Meq/l 1,000 ml @ 150 mls/hr IV .Q6H40M [facility] Rx# :[id number] Sodium Phosphate 10 mmol 500 In Sodium Chloride 0.9% 250 ml @ 125 mls/hr IVPB Q2H [facility] Rx#:[id number] Intake, IV Titration 39.154 42.651 Amount Insulin Regular 100 unit 39.154 In Sodium Chloride 0.9% 100 ml @ 3 UNIT/HR 3.03 mls/hr IV .Q24H ONE Rx#: [id number] Insulin Regular 100 unit 0 42.651 In Sodium Chloride 0.9% 100 ml @ 7 UNITS/HR 7.07 mls/hr IV .[id number] [facility] Rx #:[id number] Oral 250 Output: Urine 865 528 305 Other: Voiding Method Indwelling Catheter Indwelling Catheter Indwelling Catheter # Bowel Movements 1 - Constitutional General appearance: Present: no acute distress - Respiratory Respiratory: bilateral: CTA - Cardiovascular Rhythm: regular Heart sounds: normal: S1, S2 - Labs CBC & Chem 7: 08/12/17 02:10 08/12/17 02:10 Labs: Abnormal Lab Results - Last 24 Hours (Table) 08/10/17 08/11/17 08/11/17 Range/Units 16:00 11:21 12:57 Plt Count (150-450) k/uL Sodium 154 H (137-145) mmol/L Chloride 120 H* (98-107) mmol/L Carbon Dioxide 20 L (22-30) mmol/L BUN 19 H (7-17) mg/dL Creatinine (0.52-1.04) mg/dL Glucose 342 H (74-99) mg/dL POC Glucose (mg/dL) 322 H (75-99) mg/dL Hemoglobin A1c 11.4 H (4.0-6.0) % Calcium 7.9 L (8.4-10.2) mg/dL Phosphorus 1.9 L (2.5-4.5) mg/dL 08/11/17 08/11/17 08/11/17 Range/Units 13:08 14:12 15:31 Plt Count (150-450) k/uL Sodium (137-145) mmol/L Chloride (98-107) mmol/L Carbon Dioxide (22-30) mmol/L BUN (7-17) mg/dL Creatinine (0.52-1.04) mg/dL Glucose (74-99) mg/dL POC Glucose (mg/dL) 359 H 398 H 405 H (75-99) mg/dL Hemoglobin A1c (4.0-6.0) % Calcium (8.4-10.2) mg/dL Phosphorus (2.5-4.5) mg/dL 08/11/17 08/11/17 08/11/17 Range/Units 17:17 18:55 19:03 Plt Count (150-450) k/uL Sodium 151 H (137-145) mmol/L Chloride 121 H* (98-107) mmol/L Carbon Dioxide 19 L (22-30) mmol/L BUN (7-17) mg/dL Creatinine (0.52-1.04) mg/dL Glucose 328 H (74-99) mg/dL POC Glucose (mg/dL) 315 H 323 H (75-99) mg/dL Hemoglobin A1c (4.0-6.0) % Calcium 7.9 L (8.4-10.2) mg/dL Phosphorus (2.5-4.5) mg/dL 08/11/17 08/11/17 08/11/17 Range/Units 19:51 21:16 22:22 Plt Count (150-450) k/uL Sodium (137-145) mmol/L Chloride (98-107) mmol/L Carbon Dioxide (22-30) mmol/L BUN (7-17) mg/dL Creatinine (0.52-1.04) mg/dL Glucose (74-99) mg/dL POC Glucose (mg/dL) 283 H 185 H 123 H (75-99) mg/dL Hemoglobin A1c (4.0-6.0) % Calcium (8.4-10.2) mg/dL Phosphorus (2.5-4.5) mg/dL 08/11/17 08/12/17 08/12/17 Range/Units 23:26 00:28 01:24 Plt Count (150-450) k/uL Sodium (137-145) mmol/L Chloride (98-107) mmol/L Carbon Dioxide (22-30) mmol/L BUN (7-17) mg/dL Creatinine (0.52-1.04) mg/dL Glucose (74-99) mg/dL POC Glucose (mg/dL) 107 H 111 H 131 H (75-99) mg/dL Hemoglobin A1c (4.0-6.0) % Calcium (8.4-10.2) mg/dL Phosphorus (2.5-4.5) mg/dL 08/12/17 08/12/17 08/12/17 Range/Units 02:10 02:10 02:31 Plt Count 97 L (150-450) k/uL Sodium 151 H (137-145) mmol/L Chloride 123 H* (98-107) mmol/L Carbon Dioxide 21 L (22-30) mmol/L BUN (7-17) mg/dL Creatinine 0.51 L (0.52-1.04) mg/dL Glucose 154 H (74-99) mg/dL POC Glucose (mg/dL) 163 H (75-99) mg/dL Hemoglobin A1c (4.0-6.0) % Calcium 8.1 L (8.4-10.2) mg/dL Phosphorus (2.5-4.5) mg/dL 08/12/17 Range/Units 07:17 Plt Count (150-450) k/uL Sodium (137-145) mmol/L Chloride (98-107) mmol/L Carbon Dioxide (22-30) mmol/L BUN (7-17) mg/dL Creatinine (0.52-1.04) mg/dL Glucose (74-99) mg/dL POC Glucose (mg/dL) 278 H (75-99) mg/dL Hemoglobin A1c (4.0-6.0) % Calcium (8.4-10.2) mg/dL Phosphorus (2.5-4.5) mg/dL Assessment and Plan Assessment: Assessment #1 diabetes ketoacidosis #2 abnormal EKG showing possible old TX #3 history of smoking and currently she is not smoking. Plan #1 the patient was ruled out for acute coronary event #2 we will follow-up on the echocardiogram #3 follow-up with the patient. Thank you for allowing us participate in her care
[2017-08-12 09:45] LABS: ALT 520 U/L (9-52); AST 444 U/L (14-36); Albumin 2.8 g/dL (3.5-5.0); Alkaline Phosphatase 130 U/L (38-126); Total Bilirubin 0.5 mg/dL (0.2-1.3); Total Protein 5.1 g/dL (6.3-8.2)
[2017-08-12 11:18] VITALS: BMI 25.1
--- NOTE | 2017-08-12 11:41 | ECHOF ---
Referral Reason:left ventricular function MEASUREMENTS -------- HEIGHT: 170.2 cm WEIGHT: 72.6 kg BP: 123/49 RVIDd: 2.3 cm (< 3.3) IVSd: 1.1 cm (0.6 - 1.1) LVIDd: 3.8 cm (3.9 - 5.3) LVPWd: 1.1 cm (0.6 - 1.1) IVSs: 1.9 cm LVIDs: 1.9 cm LVPWs: 1.8 cm LA Diam: 2.8 cm (2.7 - 3.8) LAESV Index (A-L): 15.90 ml/m Ao Diam: 2.8 cm (2.0 - 3.7) AV Cusp: 1.6 cm (1.5 - 2.6) LA Diam: 3.1 cm (2.7 - 3.8) MV EXCURSION: 13.189 mm (> 18.000) MV EF SLOPE: 69 mm/s (70 - 150) EPSS: 0.3 cm MV E Silvino: 0.72 m/s MV DecT: 149 ms MV A Silvino: 0.85 m/s MV E/A Ratio: 0.84 RAP: 5.00 mmHg RVSP: 19.96 mmHg FINDINGS -------- Sinus rhythm. This was a technically adequate study. LV size, wall thickness and systolic function are normal, with an EF greater than 55%. The left marquise tricular size is normal. The right ventricle is normal in size. Normal LA size by volume 22+/-6 ml/m2. The right atrial size is normal. The aortic valve is trileaflet, and appears structurally normal. No aortic stenosis or regurgitation. Mild mitral annular calcification present. Mild mitral regurgitation is present. Mild tricuspid regurgitation present. There is no evidence of pulmonary hypertension. The right v entricular systolic pressure, as measured by Doppler, is 19.96mmHg. There is no pulmonic regurgitation present. The aortic root size is normal. Echo free space represents a pericardial fat pad. CONCLUSIONS -------- 1. LV size, wall thickness and systolic function are normal, with an EF greater than 55%. 2. The left ventricular size is normal. 3. Normal LA size by volume 22+/-6 ml/m2. 4. The aortic valve is trileaflet, and appears structurally normal. No aortic stenosis or regurgitati on. 5. Mild mitral annular calcification present. 6. Mild mitral regurgitation is present. 7. Mild tricuspid regurgitation present. 8. There is no evidence of pulmonary hypertension. 9. The right ventricular systolic pressure, as measured by Doppler, is 19.96mmHg. 10. There is no pulmonic regurgitation present. 11. The aortic root size is normal. 12. Echo free space represents a pericardial fat pad. CHUTE BUILDER: Joanie Hernandez RDCS
[2017-08-12 11:59] LABS: Amylase 78 U/L (30-110); Lipase 197 U/L (23-300)
[2017-08-12 12:31] LABS: Glucose,Whole Blood 297 mg/dL (75-99)
[2017-08-12] MEDS: SODIUM CHLORIDE 0.45% 1,000 ML IV SCH (13:01)
[2017-08-12 17:37] LABS: Glucose,Whole Blood 316 mg/dL (75-99)
--- NOTE | 2017-08-12 18:07 | P.CNPUL ---
History of Present Illness Consult date: 08/11/17 (Critical care consult) Chief complaint: Critical care management for uncontrolled diabetes and hyperglycemia and se History of present illness: Patient seen eval reexamined in the ICU patient is a 57-year-old female who was transferred from [facility] her sugar was greater than 1000 that she has no history of for diabetes in the past hemoglobin A1c done back in October lost year was 5.8 she recently had a surgery done May she had some teeth extraction she was fine until yesterday when she felt weak and dizzy and she was seen in the [facility] over that they noticed that sugar was greater than 1000 white count was greater than 15,000 chest x-ray was unremarkable creatinine was 1.8 this started on insulin infusion give her some fluids along with the antibiotics bicarb with a was 4 in pH was 7.01 to that EKG had some changes It did show sinus rhythm with 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 More importantly, the patient did not have any symptoms of chest pain or discomfort nor difficulty breathing nor dizziness or lightheadedness. This patient was feeling weak and dizzy, she had the about 10-12 extraction into succession in the last 2 weeks and she has been on amoxicillin and Motrin for that at home Review of Systems All systems: negative Past Medical History Past Medical History: Hyperlipidemia, Hypertension History of Any Multi-Drug Resistant Organisms: None Reported Past Surgical History: No Surgical Hx Reported Additional Past Surgical History / Comment(s): dental surgery Smoking Status: Former smoker - Past Family History Sister(s) Family Medical History: Diabetes Mellitus Medications and Allergies Home Medications Medication Instructions Recorded Confirmed Type Amoxicillin 875 mg PO Q12HR 08/10/17 08/10/17 History Ibuprofen [Motrin] 800 mg PO BID PRN 08/10/17 08/10/17 History Allergies Allergy/AdvReac Type Severity Reaction Status Date / Time No Known Allergies Allergy Verified 08/10/17 15:54 Physical Exam Vitals: Vital Signs Temp Pulse Pulse Resp BP BP Pulse Ox 08/12/17 15:00 98.4 F 97 16 98/69 98 08/12/17 14:41 98.5 F 08/12/17 12:00 133/55 08/12/17 11:00 98.6 F 86 23 133/55 99 08/12/17 09:00 92 18 99 08/12/17 08:00 98.9 F 83 23 118/51 100 08/12/17 07:48 27 H 08/12/17 07:00 80 27 H 117/58 97 08/12/17 06:00 75 26 H 123/49 95 08/12/17 05:00 74 14 119/65 96 08/12/17 04:00 98.7 F 80 26 H 104/49 94 L 08/12/17 03:24 27 H 08/12/17 03:00 79 27 H 99/49 88 L 08/12/17 02:00 82 18 103/45 99 08/12/17 01:00 78 25 H 111/50 99 08/12/17 00:00 98.6 F 77 27 H 103/49 96 08/11/17 23:16 28 H 08/11/17 23:10 77 27 H 101/62 95 08/11/17 23:00 78 28 H 101/62 96 08/11/17 22:00 83 25 H 114/49 93 L 08/11/17 21:00 83 29 H 118/54 95 08/11/17 20:00 98.7 F 90 13 121/58 98 08/11/17 19:44 13 08/11/17 19:00 89 13 87/47 98 08/11/17 18:00 99 14 100/56 98 Intake and Output 08/12/17 08/12/17 08/12/17 06:59 14:59 22:59 Intake Total 758.698 625 75 Output Total 295 680 Balance 463.698 -55 75 Intake: IV 750 100 D5-0.45% NaCl with KCl 750 100 20Meq/l 1,000 ml @ 150 mls/hr IV .[id number] [facility] Rx# :[id number] Intake, IV Titration 8.698 75 75 Amount Insulin Regular 100 unit 8.698 In Sodium Chloride 0.9% 100 ml @ 7 UNITS/HR 7.07 mls/hr IV .[id number] [facility] Rx #:[id number] Sodium Chloride 0.45% 1, 75 75 000 ml @ 75 mls/hr IV . [id number] [facility] Rx#:[id number] Oral 450 Output: Urine 295 680 Other: Voiding Method Indwelling Catheter Indwelling Catheter # Voids 1 # Bowel Movements 1 1 Weight 72.8 kg 72.8 kg General: The patient is awake , she looks dehydrated GCS is 15 Skin: Skin is warm and dry and no rashes or lesions are noted. Eye: Pupils are equal, round and reactive to light, extra-ocular movements are intact; there is normal conjunctiva bilaterally. Ears, nose, mouth and throat: There are moist mucous membranes and no oral lesions. Neck: The neck is supple, there is no tenderness or JVD. Cardiovascular: There is sinus tachycardia Respiratory: To auscultation bilateral, no wheezing no rhonchi no distress respiratory park noticed Gastrointestinal: Soft, non-distended, non-tender abdomen without masses or organomegaly noted. There is no rebound or guarding present. Bowel sounds are unremarkable. Back: There is no tenderness to palpation in the midline. There is no obvious deformity. Musculoskeletal: Normal ROM, no tenderness, There is no pedal edema. There is no calf tenderness or swelling. No cords were appreciated. Neurological: CN II-XII intact, Cranial nerves III through XII are intact. There are no obvious motor or sensory deficits. Coordination appears grossly intact. Speech is normal. Psychiatric: Cooperative, appropriate mood & affect, normal judgment. Results - Laboratory Findings CBC and BMP: 08/12/17 02:10 08/12/17 02:10 ABG ABG pH 7.22 (7.35-7.45) L 08/10/17 15:49 ABG pCO2 17 mmHg (35-45) L* 08/10/17 15:49 ABG pO2 105 mmHg (83-108) 08/10/17 15:49 ABG O2 Saturation 98.7 % (94-97) H 08/10/17 15:49 Abnormal lab findings: Abnormal Labs 08/10/17 08/10/17 08/10/17 15:01 15:30 15:49 WBC Hct Plt Count Neutrophils # ABG pH 7.22 L ABG pCO2 17 L* ABG HCO3 7 L* ABG Total CO2 8 L ABG O2 Saturation 98.7 H Sodium Chloride Carbon Dioxide BUN Creatinine Glucose POC Glucose (mg/dL) 487 H Hemoglobin A1c Osmolality Calcium Phosphorus Magnesium AST ALT Alkaline Phosphatase Total Protein Albumin Urine Protein 1+ H Urine Glucose (UA) 4+ H Urine Ketones 4+ H Urine Blood Moderate H Urine RBC 18 H Urine Bacteria Rare H Urine Mucus Rare H 08/10/17 08/10/17 08/10/17 15:56 15:59 15:59 WBC 12.9 H Hct 47.7 H Plt Count Neutrophils # 10.4 H ABG pH ABG pCO2 ABG HCO3 ABG Total CO2 ABG O2 Saturation Sodium 163 H* Chloride 124 H* Carbon Dioxide 9 L* BUN 30 H Creatinine 1.11 H Glucose 511 H* POC Glucose (mg/dL) 431 H Hemoglobin A1c Osmolality Calcium Phosphorus Magnesium AST 72 H ALT 257 H Alkaline Phosphatase 177 H Total Protein Albumin Urine Protein Urine Glucose (UA) Urine Ketones Urine Blood Urine RBC Urine Bacteria Urine Mucus 08/10/17 08/10/17 08/10/17 16:00 16:00 16:41 WBC Hct Plt Count Neutrophils # ABG pH ABG pCO2 ABG HCO3 ABG Total CO2 ABG O2 Saturation Sodium Chloride Carbon Dioxide BUN Creatinine Glucose POC Glucose (mg/dL) 429 H Hemoglobin A1c 11.4 H Osmolality 373 H* Calcium Phosphorus 2.4 L Magnesium 2.8 H AST ALT Alkaline Phosphatase Total Protein Albumin Urine Protein Urine Glucose (UA) Urine Ketones Urine Blood Urine RBC Urine Bacteria Urine Mucus 08/10/17 08/10/17 08/10/17 17:19 18:42 20:01 WBC Hct Plt Count Neutrophils # ABG pH ABG pCO2 ABG HCO3 ABG Total CO2 ABG O2 Saturation Sodium Chloride Carbon Dioxide BUN Creatinine Glucose POC Glucose (mg/dL) 401 H 370 H 315 H Hemoglobin A1c Osmolality Calcium Phosphorus Magnesium AST ALT Alkaline Phosphatase Total Protein Albumin Urine Protein Urine Glucose (UA) Urine Ketones Urine Blood Urine RBC Urine Bacteria Urine Mucus 08/10/17 08/10/17 08/10/17 20:45 21:07 22:30 WBC Hct Plt Count Neutrophils # ABG pH ABG pCO2 ABG HCO3 ABG Total CO2 ABG O2 Saturation Sodium 161 H* Chloride 126 H* Carbon Dioxide 14 L BUN 28 H Creatinine Glucose 305 H POC Glucose (mg/dL) 269 H 244 H Hemoglobin A1c Osmolality Calcium Phosphorus 1.8 L Magnesium 2.6 H AST ALT Alkaline Phosphatase Total Protein Albumin Urine Protein Urine Glucose (UA) Urine Ketones Urine Blood Urine RBC Urine Bacteria Urine Mucus 08/10/17 08/10/17 08/11/17 23:07 23:58 00:01 WBC Hct Plt Count Neutrophils # ABG pH ABG pCO2 ABG HCO3 ABG Total CO2 ABG O2 Saturation Sodium 163 H* Chloride 128 H* Carbon Dioxide 16 L BUN 28 H Creatinine Glucose 187 H POC Glucose (mg/dL) 185 H 169 H Hemoglobin A1c Osmolality Calcium Phosphorus 2.0 L Magnesium 2.5 H AST ALT Alkaline Phosphatase Total Protein Albumin Urine Protein Urine Glucose (UA) Urine Ketones Urine Blood Urine RBC Urine Bacteria Urine Mucus 08/11/17 08/11/17 08/11/17 01:23 02:17 04:26 WBC Hct Plt Count Neutrophils # ABG pH ABG pCO2 ABG HCO3 ABG Total CO2 ABG O2 Saturation Sodium Chloride Carbon Dioxide BUN Creatinine Glucose POC Glucose (mg/dL) 173 H 156 H 100 H Hemoglobin A1c Osmolality Calcium Phosphorus Magnesium AST ALT Alkaline Phosphatase Total Protein Albumin Urine Protein Urine Glucose (UA) Urine Ketones Urine Blood Urine RBC Urine Bacteria Urine Mucus 08/11/17 08/11/17 08/11/17 05:00 05:00 05:00 WBC Hct Plt Count Neutrophils # 7.8 H ABG pH ABG pCO2 ABG HCO3 ABG Total CO2 ABG O2 Saturation Sodium 161 H* 161 H* Chloride 128 H* 131 H* Carbon Dioxide 17 L 15 L BUN 26 H 27 H Creatinine Glucose 126 H 127 H POC Glucose (mg/dL) Hemoglobin A1c Osmolality Calcium Phosphorus 2.2 L Magnesium 2.5 H AST 129 H ALT 296 H Alkaline Phosphatase 159 H Total Protein 5.8 L Albumin 3.1 L Urine Protein Urine Glucose (UA) Urine Ketones Urine Blood Urine RBC Urine Bacteria Urine Mucus 08/11/17 08/11/17 08/11/17 05:07 06:27 07:21 WBC Hct Plt Count Neutrophils # ABG pH ABG pCO2 ABG HCO3 ABG Total CO2 ABG O2 Saturation Sodium Chloride Carbon Dioxide BUN Creatinine Glucose POC Glucose (mg/dL) 115 H 134 H 182 H Hemoglobin A1c Osmolality Calcium Phosphorus Magnesium AST ALT Alkaline Phosphatase Total Protein Albumin Urine Protein Urine Glucose (UA) Urine Ketones Urine Blood Urine RBC Urine Bacteria Urine Mucus 08/11/17 08/11/17 08/11/17 08:17 09:08 11:21 WBC Hct Plt Count Neutrophils # ABG pH ABG pCO2 ABG HCO3 ABG Total CO2 ABG O2 Saturation Sodium Chloride Carbon Dioxide BUN Creatinine Glucose POC Glucose (mg/dL) 240 H 293 H 322 H Hemoglobin A1c Osmolality Calcium Phosphorus Magnesium AST ALT Alkaline Phosphatase Total Protein Albumin Urine Protein Urine Glucose (UA) Urine Ketones Urine Blood Urine RBC Urine Bacteria Urine Mucus 08/11/17 08/11/17 08/11/17 12:57 13:08 14:12 WBC Hct Plt Count Neutrophils # ABG pH ABG pCO2 ABG HCO3 ABG Total CO2 ABG O2 Saturation Sodium 154 H Chloride 120 H* Carbon Dioxide 20 L BUN 19 H Creatinine Glucose 342 H POC Glucose (mg/dL) 359 H 398 H Hemoglobin A1c Osmolality Calcium 7.9 L Phosphorus 1.9 L Magnesium AST ALT Alkaline Phosphatase Total Protein Albumin Urine Protein Urine Glucose (UA) Urine Ketones Urine Blood Urine RBC Urine Bacteria Urine Mucus 08/11/17 08/11/17 08/11/17 15:31 17:17 18:55 WBC Hct Plt Count Neutrophils # ABG pH ABG pCO2 ABG HCO3 ABG Total CO2 ABG O2 Saturation Sodium Chloride Carbon Dioxide BUN Creatinine Glucose POC Glucose (mg/dL) 405 H 315 H 323 H Hemoglobin A1c Osmolality Calcium Phosphorus Magnesium AST ALT Alkaline Phosphatase Total Protein Albumin Urine Protein Urine Glucose (UA) Urine Ketones Urine Blood Urine RBC Urine Bacteria Urine Mucus 08/11/17 08/11/17 08/11/17 19:03 19:51 21:16 WBC Hct Plt Count Neutrophils # ABG pH ABG pCO2 ABG HCO3 ABG Total CO2 ABG O2 Saturation Sodium 151 H Chloride 121 H* Carbon Dioxide 19 L BUN Creatinine Glucose 328 H POC Glucose (mg/dL) 283 H 185 H Hemoglobin A1c Osmolality Calcium 7.9 L Phosphorus Magnesium AST ALT Alkaline Phosphatase Total Protein Albumin Urine Protein Urine Glucose (UA) Urine Ketones Urine Blood Urine RBC Urine Bacteria Urine Mucus 08/11/17 08/11/17 08/12/17 22:22 23:26 00:28 WBC Hct Plt Count Neutrophils # ABG pH ABG pCO2 ABG HCO3 ABG Total CO2 ABG O2 Saturation Sodium Chloride Carbon Dioxide BUN Creatinine Glucose POC Glucose (mg/dL) 123 H 107 H 111 H Hemoglobin A1c Osmolality Calcium Phosphorus Magnesium AST ALT Alkaline Phosphatase Total Protein Albumin Urine Protein Urine Glucose (UA) Urine Ketones Urine Blood Urine RBC Urine Bacteria Urine Mucus 08/12/17 08/12/17 08/12/17 01:24 02:10 02:10 WBC Hct Plt Count 97 L Neutrophils # ABG pH ABG pCO2 ABG HCO3 ABG Total CO2 ABG O2 Saturation Sodium 151 H Chloride 123 H* Carbon Dioxide 21 L BUN Creatinine 0.51 L Glucose 154 H POC Glucose (mg/dL) 131 H Hemoglobin A1c Osmolality Calcium 8.1 L Phosphorus Magnesium AST 444 H ALT 520 H Alkaline Phosphatase 130 H Total Protein 5.1 L Albumin 2.8 L Urine Protein Urine Glucose (UA) Urine Ketones Urine Blood Urine RBC Urine Bacteria Urine Mucus 08/12/17 08/12/17 08/12/17 02:31 07:17 12:30 WBC Hct Plt Count Neutrophils # ABG pH ABG pCO2 ABG HCO3 ABG Total CO2 ABG O2 Saturation Sodium Chloride Carbon Dioxide BUN Creatinine Glucose POC Glucose (mg/dL) 163 H 278 H 297 H Hemoglobin A1c Osmolality Calcium Phosphorus Magnesium AST ALT Alkaline Phosphatase Total Protein Albumin Urine Protein Urine Glucose (UA) Urine Ketones Urine Blood Urine RBC Urine Bacteria Urine Mucus 08/12/17 17:36 WBC Hct Plt Count Neutrophils # ABG pH ABG pCO2 ABG HCO3 ABG Total CO2 ABG O2 Saturation Sodium Chloride Carbon Dioxide BUN Creatinine Glucose POC Glucose (mg/dL) 316 H Hemoglobin A1c Osmolality Calcium Phosphorus Magnesium AST ALT Alkaline Phosphatase Total Protein Albumin Urine Protein Urine Glucose (UA) Urine Ketones Urine Blood Urine RBC Urine Bacteria Urine Mucus - Diagnostic Findings Chest x-ray: report reviewed, image reviewed Assessment and Plan Assessment: Sirs-like process versus early sepsis Severe acute metabolic acidosis related diabetic ketoacidosis Electrolyte imbalance with severe hypernatremia Elevated liver enzyme likely transaminitis with normal total bilirubin Newly diagnosed diabetes mellitus Plan: Aggressive fluid hydration Change IV fluids from normal saline to half normal saline Insulin drip I'll up on liver enzymes and electrolytes DVT prophylaxis and peptic ulcer disease prophylaxis Deep breathing exercise incentive spirometry Further recommendations pending plan of care as per clinical response of the patient Time with Patient: Greater than 30
--- NOTE | 2017-08-12 18:13 | P.PN ---
Subjective Progress Note Date: 08/12/17 Principal diagnosis: Sirs-like process and sepsis, severe acute metabolic acidosis related diabetic ketoacidosis, newly diagnosed diabetes mellitus, electrolyte imbalance with severe hypernatremia, elevated liver enzyme, pancreatic mass, newly diagnosed diabetes mellitus, fatty liver 08/12/2017, patient seen eval reexamined during the rounds clinically patient is doing slightly better in terms of the mental status and generalized weakness , patient has been evaluated in evaluated by cardiovascular services no aggressive plan has been recommended echo results are reported reviewed the ultrasound of the abdomen reviewed as well patient has a hepatic steatosis along with the lesion of 1 cm size is noted pancreatic tail, GI services has been consulted patient severe hypernatremia has improved significantly labs reviewed medications reviewed care plan discussed with patient and family present at bedside at length Patient seen eval reexamined in the ICU patient is a 57-year-old female who was transferred from [facility] her sugar was greater than 1000 that she has no history of for diabetes in the past hemoglobin A1c done back in October lost year was 5.8 she recently had a surgery done September she had some teeth extraction she was fine until yesterday when she felt weak and dizzy and she was seen in the [facility] over that they noticed that sugar was greater than 1000 white count was greater than 15,000 chest x-ray was unremarkable creatinine was 1.8 this started on insulin infusion give her some fluids along with the antibiotics bicarb with a was 4 in pH was 7.01 to that EKG had some changes It did show sinus rhythm with left anterior fascicular block and possible old inferior [place]. More importantly, the patient did not have any symptoms of chest pain or discomfort nor difficulty breathing nor dizziness or lightheadedness. This patient was feeling weak and dizzy, she had the about 10-12 extraction into succession in the last 2 weeks and she has been on amoxicillin and Motrin for that at home Objective - Vital Signs Vital signs: Vital Signs Temp 98.4 F 08/12/17 15:00 Pulse 97 08/12/17 15:00 Resp 16 08/12/17 15:00 BP 98/69 08/12/17 15:00 Pulse Ox 98 08/12/17 15:00 Intake & Output 08/11/17 08/12/17 08/12/17 18:59 06:59 18:59 Intake Total 2589.154 1392.651 700 Output Total 865 528 680 Balance 1724.154 864.651 20 Weight 72.8 kg 72.8 kg Intake: IV 2300 1350 100 D5-0.45% NaCl with KCl 1800 1350 100 20Meq/l 1,000 ml @ 150 mls/hr IV .[id number] [facility] Rx# :[id number] Sodium Phosphate 10 mmol 500 In Sodium Chloride 0.9% 250 ml @ 125 mls/hr IVPB Q2H [facility] Rx#:[id number] Intake, IV Titration 39.154 42.651 150 Amount Insulin Regular 100 unit 39.154 In Sodium Chloride 0.9% 100 ml @ 3 UNIT/HR 3.03 mls/hr IV .Q24H [facility] Rx#: [id number] Insulin Regular 100 unit 0 42.651 In Sodium Chloride 0.9% 100 ml @ 7 UNITS/HR 7.07 mls/hr IV .[id number] [facility] Rx #:[id number] Sodium Chloride 0.45% 1, 150 000 ml @ 75 mls/hr IV . [id number] [facility] Rx#:[id number] Oral 250 450 Output: Urine 865 528 680 Other: Voiding Method Indwelling Catheter Indwelling Catheter Indwelling Catheter # Voids 1 # Bowel Movements 1 1 - Exam General: The patient is awake , she looks dehydrated GCS is 15 Skin: Skin is warm and dry and no rashes or lesions are noted. Eye: Pupils are equal, round and reactive to light, extra-ocular movements are intact; there is normal conjunctiva bilaterally. Ears, nose, mouth and throat: There are moist mucous membranes and no oral lesions. Neck: The neck is supple, there is no tenderness or JVD. Cardiovascular: There is sinus tachycardia Respiratory: To auscultation bilateral, no wheezing no rhonchi no distress respiratory park noticed Gastrointestinal: Soft, non-distended, non-tender abdomen without masses or organomegaly noted. There is no rebound or guarding present. Bowel sounds are unremarkable. Back: There is no tenderness to palpation in the midline. There is no obvious deformity. Musculoskeletal: Normal ROM, no tenderness, There is no pedal edema. There is no calf tenderness or swelling. No cords were appreciated. Neurological: CN II-XII intact, Cranial nerves III through XII are intact. There are no obvious motor or sensory deficits. Coordination appears grossly intact. Speech is normal. Psychiatric: Cooperative, appropriate mood & affect, normal judgment. - Labs CBC & Chem 7: 08/12/17 02:10 08/12/17 02:10 Labs: Abnormal Lab Results - Last 24 Hours (Table) 08/10/17 08/11/17 08/11/17 Range/Units 16:00 18:55 19:03 Plt Count (150-450) k/uL Sodium 151 H (137-145) mmol/L Chloride 121 H* (98-107) mmol/L Carbon Dioxide 19 L (22-30) mmol/L Creatinine (0.52-1.04) mg/dL Glucose 328 H (74-99) mg/dL POC Glucose (mg/dL) 323 H (75-99) mg/dL Hemoglobin A1c 11.4 H (4.0-6.0) % Calcium 7.9 L (8.4-10.2) mg/dL AST (14-36) U/L ALT (9-52) U/L Alkaline Phosphatase (38-126) U/L Total Protein (6.3-8.2) g/dL Albumin (3.5-5.0) g/dL 08/11/17 08/11/17 08/11/17 Range/Units 19:51 21:16 22:22 Plt Count (150-450) k/uL Sodium (137-145) mmol/L Chloride (98-107) mmol/L Carbon Dioxide (22-30) mmol/L Creatinine (0.52-1.04) mg/dL Glucose (74-99) mg/dL POC Glucose (mg/dL) 283 H 185 H 123 H (75-99) mg/dL Hemoglobin A1c (4.0-6.0) % Calcium (8.4-10.2) mg/dL AST (14-36) U/L ALT (9-52) U/L Alkaline Phosphatase (38-126) U/L Total Protein (6.3-8.2) g/dL Albumin (3.5-5.0) g/dL 08/11/17 08/12/17 08/12/17 Range/Units 23:26 00:28 01:24 Plt Count (150-450) k/uL Sodium (137-145) mmol/L Chloride (98-107) mmol/L Carbon Dioxide (22-30) mmol/L Creatinine (0.52-1.04) mg/dL Glucose (74-99) mg/dL POC Glucose (mg/dL) 107 H 111 H 131 H (75-99) mg/dL Hemoglobin A1c (4.0-6.0) % Calcium (8.4-10.2) mg/dL AST (14-36) U/L ALT (9-52) U/L Alkaline Phosphatase (38-126) U/L Total Protein (6.3-8.2) g/dL Albumin (3.5-5.0) g/dL 08/12/17 08/12/17 08/12/17 Range/Units 02:10 02:10 02:31 Plt Count 97 L (150-450) k/uL Sodium 151 H (137-145) mmol/L Chloride 123 H* (98-107) mmol/L Carbon Dioxide 21 L (22-30) mmol/L Creatinine 0.51 L (0.52-1.04) mg/dL Glucose 154 H (74-99) mg/dL POC Glucose (mg/dL) 163 H (75-99) mg/dL Hemoglobin A1c (4.0-6.0) % Calcium 8.1 L (8.4-10.2) mg/dL AST 444 H (14-36) U/L ALT 520 H (9-52) U/L Alkaline Phosphatase 130 H (38-126) U/L Total Protein 5.1 L (6.3-8.2) g/dL Albumin 2.8 L (3.5-5.0) g/dL 08/12/17 08/12/17 08/12/17 Range/Units 07:17 12:30 17:36 Plt Count (150-450) k/uL Sodium (137-145) mmol/L Chloride (98-107) mmol/L Carbon Dioxide (22-30) mmol/L Creatinine (0.52-1.04) mg/dL Glucose (74-99) mg/dL POC Glucose (mg/dL) 278 H 297 H 316 H (75-99) mg/dL Hemoglobin A1c (4.0-6.0) % Calcium (8.4-10.2) mg/dL AST (14-36) U/L ALT (9-52) U/L Alkaline Phosphatase (38-126) U/L Total Protein (6.3-8.2) g/dL Albumin (3.5-5.0) g/dL Assessment and Plan Assessment: Elevated liver enzyme Hepatic steatosis/fatty liver Pancreatic tail mass 1 cm Sirs-like process versus early sepsis Severe acute metabolic acidosis related diabetic ketoacidosis Electrolyte imbalance with severe hypernatremia Elevated liver enzyme likely transaminitis with normal total bilirubin Newly diagnosed diabetes mellitus Plan: Aggressive fluid hydration Change IV fluids from normal saline to half normal saline Insulin drip has been discontinued now patient is placed on Lantus along with NovoLog I'll up on liver enzymes and electrolytes, initiate GI consultation DVT prophylaxis and peptic ulcer disease prophylaxis Deep breathing exercise incentive spirometry Further recommendations pending plan of care as per clinical response of the patient Time with Patient: Greater than 30
[2017-08-12 20:27] LABS: Hepatitis A Antibody IgM Non-Reactive (Non-Reactive); Hepatitis B Core IgM Non-Reactive (Non-Reactive)
[2017-08-12] MEDS ORDERED: INSULIN DETEMIR 100 UNIT/ML 10 ML VIAL SQ SCH ×2 (21:00→22:15)
[2017-08-12 21:07] LABS: Glucose,Whole Blood 322 mg/dL (75-99)
--- NOTE | 2017-08-12 22:16 | P.PN ---
Subjective Progress Note Date: 08/11/17 Principal diagnosis: Acute diabetic ketoacidosis Patient is a 57 old female with out a known history of diabetes was transferred from [facility] with sugar is greater than 1000. Patient had last his B A1c in October 2016 was 5.8. Patient recently had tooth extraction and infection and is currently on antibiotics for that. Patient presented to ER with complaints of generalized weakness and dizziness. Patient was found to have in DKA. Patient also having dehydration and hypernatremia. EKG showed sinus rhythm with left anterior fascicular block. Pulmonary and cardiology was consulted. 08/11/2017 currently patient is still in DKA and is on insulin drip. Anion gap is 14 at this time. Otherwise patient is having elevated liver enzymes AST and ALT which are trending up at this time. Ultrasound of the abdomen was ordered. Cardiology has seen the patient and recommended 2-D echocardiogram. Patient denied any fever or chills. No nausea vomiting or abdominal pain. No dysuria or hematuria. No cough is from production. Currently HB A1c 11.4 All other review of systems negative except the above Current medications reviewed Objective - Vital Signs Vital signs: Vital Signs Temp 98.2 F 08/11/17 12:00 Pulse 90 08/11/17 15:00 Resp 19 08/11/17 15:21 BP 81/36 08/11/17 15:00 Pulse Ox 97 08/11/17 15:00 Intake & Output 08/10/17 08/11/17 08/11/17 18:59 06:59 18:59 Intake Total 9892.280 5727.268 1639.154 Output Total 865 353 655 Balance 357.055 0809.268 984.154 Weight 79.379 kg 70.5 kg Intake: IV 1200 2250 1350 D5-0.45% NaCl with KCl 1050 1350 20Meq/l 1,000 ml @ 150 mls/hr IV .Q6H40M [facility] Rx# :[id number] Potassium Phosphate 10 250 mmol In Sodium Chloride 0 .9% 250 ml @ 125 mls/hr IV Q2H [facility] Rx#:[id number] Sodium Chloride 0.45% 1, 200 950 000 ml @ 200 mls/hr IV . Q5H [facility] Rx#:[id number] Sodium Chloride 0.9% 2, 1000 000 ml @ 999 mls/hr IV . Q2H1M [facility] Rx#:[id number] Intake, IV Titration 12.255 74.268 39.154 Amount Insulin Regular 100 unit 12.255 74.268 39.154 In Sodium Chloride 0.9% 100 ml @ 3 UNIT/HR 3.03 mls/hr IV .Q24H [facility] Rx#: [id number] Oral 250 Output: Urine 865 353 655 Other: Voiding Method Indwelling Catheter Indwelling Catheter Indwelling Catheter - Exam PHYSICAL EXAMINATION: Patient is lying in the bed comfortably, no acute distress, awake alert and oriented.. HEENT: Normocephalic. Neck is supple. Pupils reactive. Nostrils clear. Oral cavity is moist. Ears reveal no drainage. Neck reveals no JVD, carotid bruits, or thyromegaly. CHEST EXAMINATION: Trachea is central. Symmetrical expansion. Lung luo clear to auscultation and percussion. CARDIAC: Normal S1, S2 with no gallops. No murmurs ABDOMEN: Soft. Bowel sounds normal. No organomegaly. No abdominal bruits. Extremities: reveal no edema. No clubbing or cyanosis Neurologically awake, alert, oriented x3 with well-coordinated movements. No focal deficits noted Skin: No rash or skin lesions. Psychiatric: Coperative. Nonsuicidal Musculoskeletal: No joint swelling or deformity. Normal range of motion. - Labs CBC & Chem 7: 08/12/17 02:10 08/12/17 02:10 Labs: Abnormal Lab Results - Last 24 Hours (Table) 08/10/17 08/10/17 08/10/17 Range/Units 17:19 18:42 20:01 Neutrophils # (1.3-7.7) k/uL Sodium (137-145) mmol/L Chloride (98-107) mmol/L Carbon Dioxide (22-30) mmol/L BUN (7-17) mg/dL Glucose (74-99) mg/dL POC Glucose (mg/dL) 401 H 370 H 315 H (75-99) mg/dL Calcium (8.4-10.2) mg/dL Phosphorus (2.5-4.5) mg/dL Magnesium (1.6-2.3) mg/dL AST (14-36) U/L ALT (9-52) U/L Alkaline Phosphatase (38-126) U/L Total Protein (6.3-8.2) g/dL Albumin (3.5-5.0) g/dL 08/10/17 08/10/17 08/10/17 Range/Units 20:45 21:07 22:30 Neutrophils # (1.3-7.7) k/uL Sodium 161 H* (137-145) mmol/L Chloride 126 H* (98-107) mmol/L Carbon Dioxide 14 L (22-30) mmol/L BUN 28 H (7-17) mg/dL Glucose 305 H (74-99) mg/dL POC Glucose (mg/dL) 269 H 244 H (75-99) mg/dL Calcium (8.4-10.2) mg/dL Phosphorus 1.8 L (2.5-4.5) mg/dL Magnesium 2.6 H (1.6-2.3) mg/dL AST (14-36) U/L ALT (9-52) U/L Alkaline Phosphatase (38-126) U/L Total Protein (6.3-8.2) g/dL Albumin (3.5-5.0) g/dL 08/10/17 08/10/17 08/11/17 Range/Units 23:07 23:58 00:01 Neutrophils # (1.3-7.7) k/uL Sodium 163 H* (137-145) mmol/L Chloride 128 H* (98-107) mmol/L Carbon Dioxide 16 L (22-30) mmol/L BUN 28 H (7-17) mg/dL Glucose 187 H (74-99) mg/dL POC Glucose (mg/dL) 185 H 169 H (75-99) mg/dL Calcium (8.4-10.2) mg/dL Phosphorus 2.0 L (2.5-4.5) mg/dL Magnesium 2.5 H (1.6-2.3) mg/dL AST (14-36) U/L ALT (9-52) U/L Alkaline Phosphatase (38-126) U/L Total Protein (6.3-8.2) g/dL Albumin (3.5-5.0) g/dL 08/11/17 08/11/17 08/11/17 Range/Units 01:23 02:17 04:26 Neutrophils # (1.3-7.7) k/uL Sodium (137-145) mmol/L Chloride (98-107) mmol/L Carbon Dioxide (22-30) mmol/L BUN (7-17) mg/dL Glucose (74-99) mg/dL POC Glucose (mg/dL) 173 H 156 H 100 H (75-99) mg/dL Calcium (8.4-10.2) mg/dL Phosphorus (2.5-4.5) mg/dL Magnesium (1.6-2.3) mg/dL AST (14-36) U/L ALT (9-52) U/L Alkaline Phosphatase (38-126) U/L Total Protein (6.3-8.2) g/dL Albumin (3.5-5.0) g/dL 08/11/17 08/11/17 08/11/17 Range/Units 05:00 05:00 05:00 Neutrophils # 7.8 H (1.3-7.7) k/uL Sodium 161 H* 161 H* (137-145) mmol/L Chloride 128 H* 131 H* (98-107) mmol/L Carbon Dioxide 17 L 15 L (22-30) mmol/L BUN 26 H 27 H (7-17) mg/dL Glucose 126 H 127 H (74-99) mg/dL POC Glucose (mg/dL) (75-99) mg/dL Calcium (8.4-10.2) mg/dL Phosphorus 2.2 L (2.5-4.5) mg/dL Magnesium 2.5 H (1.6-2.3) mg/dL AST 129 H (14-36) U/L ALT 296 H (9-52) U/L Alkaline Phosphatase 159 H (38-126) U/L Total Protein 5.8 L (6.3-8.2) g/dL Albumin 3.1 L (3.5-5.0) g/dL 08/11/17 08/11/17 08/11/17 Range/Units 05:07 06:27 07:21 Neutrophils # (1.3-7.7) k/uL Sodium (137-145) mmol/L Chloride (98-107) mmol/L Carbon Dioxide (22-30) mmol/L BUN (7-17) mg/dL Glucose (74-99) mg/dL POC Glucose (mg/dL) 115 H 134 H 182 H (75-99) mg/dL Calcium (8.4-10.2) mg/dL Phosphorus (2.5-4.5) mg/dL Magnesium (1.6-2.3) mg/dL AST (14-36) U/L ALT (9-52) U/L Alkaline Phosphatase (38-126) U/L Total Protein (6.3-8.2) g/dL Albumin (3.5-5.0) g/dL 08/11/17 08/11/17 08/11/17 Range/Units 08:17 09:08 11:21 Neutrophils # (1.3-7.7) k/uL Sodium (137-145) mmol/L Chloride (98-107) mmol/L Carbon Dioxide (22-30) mmol/L BUN (7-17) mg/dL Glucose (74-99) mg/dL POC Glucose (mg/dL) 240 H 293 H 322 H (75-99) mg/dL Calcium (8.4-10.2) mg/dL Phosphorus (2.5-4.5) mg/dL Magnesium (1.6-2.3) mg/dL AST (14-36) U/L ALT (9-52) U/L Alkaline Phosphatase (38-126) U/L Total Protein (6.3-8.2) g/dL Albumin (3.5-5.0) g/dL 08/11/17 08/11/17 08/11/17 Range/Units 12:57 13:08 14:12 Neutrophils # (1.3-7.7) k/uL Sodium 154 H (137-145) mmol/L Chloride 120 H* (98-107) mmol/L Carbon Dioxide 20 L (22-30) mmol/L BUN 19 H (7-17) mg/dL Glucose 342 H (74-99) mg/dL POC Glucose (mg/dL) 359 H 398 H (75-99) mg/dL Calcium 7.9 L (8.4-10.2) mg/dL Phosphorus 1.9 L (2.5-4.5) mg/dL Magnesium (1.6-2.3) mg/dL AST (14-36) U/L ALT (9-52) U/L Alkaline Phosphatase (38-126) U/L Total Protein (6.3-8.2) g/dL Albumin (3.5-5.0) g/dL 08/11/17 Range/Units 15:31 Neutrophils # (1.3-7.7) k/uL Sodium (137-145) mmol/L Chloride (98-107) mmol/L Carbon Dioxide (22-30) mmol/L BUN (7-17) mg/dL Glucose (74-99) mg/dL POC Glucose (mg/dL) 405 H (75-99) mg/dL Calcium (8.4-10.2) mg/dL Phosphorus (2.5-4.5) mg/dL Magnesium (1.6-2.3) mg/dL AST (14-36) U/L ALT (9-52) U/L Alkaline Phosphatase (38-126) U/L Total Protein (6.3-8.2) g/dL Albumin (3.5-5.0) g/dL Assessment and Plan Assessment: Acute diabetic ketoacidosis acidosis Diabetes type 2 new Diagnosis Metabolic acidosis ST_T changes in the EKG/abnormal EKG Hyponatremia due to dehydration Acute kidney injury possible ATN Elevated AST and ALT Hypertension Hyperlipidemia Recent tooth extraction currently on antibiotics DVT prophylaxis Plan: Patient be continued on IV hydration. Continue with the insulin drip and follow closely. every 6 labs. Will get ultrasound of the abdomen due to elevated AST and ALT. Pulmonary is following. Further recommendations based on the clinical course. Time with Patient: Greater than 30
--- NOTE | 2017-08-12 22:21 | P.PN ---
Subjective Progress Note Date: 08/12/17 Principal diagnosis: Acute diabetic ketoacidosis Patient is a 57 old female with out a known history of diabetes was transferred from [facility] with sugar is greater than 1000. Patient had last his B A1c in October 2016 was 5.8. Patient recently had tooth extraction and infection and is currently on antibiotics for that. Patient presented to ER with complaints of generalized weakness and dizziness. Patient was found to have in DKA. Patient also having dehydration and hypernatremia. EKG showed sinus rhythm with left anterior fascicular block. Pulmonary and cardiology was consulted. 08/11/2017 currently patient is still in DKA and is on insulin drip. Anion gap is 14 at this time. Otherwise patient is having elevated liver enzymes AST and ALT which are trending up at this time. Ultrasound of the abdomen was ordered. Cardiology has seen the patient and recommended 2-D echocardiogram. Patient denied any fever or chills. No nausea vomiting or abdominal pain. No dysuria or hematuria. No cough is from production. Currently HB A1c 11.4 08/12/2017 DKA has resolved. Patient is still hyponatremic. IV fluids have been changed to half-normal saline. patient still having elevated liver enzymes. Ultrasound of the ABDOMEN SHOWED hepatic steatosis. 1 cm lesion in the pancreatic body. Extensive cholelithiasis. No fever no chills. Denied any abdominal pain. No nausea vomiting. No chest pain or shortness of breath. Patient did improve clinically. Patient is still hyperglycemic today. Currently being transferred to general medical floor. All other review of systems negative except the above Current medications reviewed Active Medications Generic Name Dose Route Start Last Admin Trade Name Freq PRN Reason Stop Dose Admin Acetaminophen 650 mg 08/10/17 16:08 Tylenol Tab PO Q4HR PRN Fever and/or Mild Pain Amoxicillin 875 mg 08/10/17 21:00 08/12/17 20:56 Amoxicillin PO 875 mg Q12HR [facility] Administration Heparin Sodium (Porcine) 5,000 unit 08/10/17 18:30 08/12/17 16:33 Heparin SQ 5,000 unit Q8HR [facility] Administration Sodium Chloride 1,000 mls @ 75 mls/hr 08/12/17 12:45 08/12/17 13:01 Saline 0.45% IV 75 mls/hr .[id number] [facility] Administration Insulin Aspart 0 unit 08/12/17 07:30 08/12/17 20:56 Novolog SQ 5 unit ACHS [facility] Administration Protocol Insulin Aspart 7 unit 08/12/17 22:04 Novolog SQ AC-TID [facility] Insulin Detemir 21 unit 08/13/17 21:00 Levemir SQ HS [facility] Insulin Detemir 11 unit 08/12/17 22:30 Levemir SQ 08/12/17 22:31 ONCE ONE Miscellaneous Information 1 each 08/11/17 14:30 Phosphorus Per Protocol MISCELLANE DAILY PRN Per Protocol Protocol Miscellaneous Information 1 each 08/11/17 15:05 Potassium Per Protocol MISCELLANE DAILY PRN Per Protocol Protocol Miscellaneous Information 1 each 08/11/17 17:48 Magnesium Per Protocol MISCELLANE DAILY PRN Per Protocol Protocol Naloxone HCl 0.2 mg 08/10/17 16:08 Narcan IV Q2M PRN Opioid Reversal Pantoprazole Sodium 40 mg 08/13/17 07:30 Protonix PO AC-BRKFST [facility] Objective - Vital Signs Vital signs: Vital Signs Temp 98.4 F 08/12/17 15:00 Pulse 97 08/12/17 15:00 Resp 16 08/12/17 15:00 BP 98/69 08/12/17 15:00 Pulse Ox 98 08/12/17 15:00 Intake & Output 08/12/17 08/12/17 08/13/17 06:59 18:59 06:59 Intake Total 1392.651 700 Output Total 528 680 Balance 864.651 20 Weight 72.8 kg 72.8 kg Intake: IV 1350 100 D5-0.45% NaCl with KCl 1350 100 20Meq/l 1,000 ml @ 150 mls/hr IV .Q6H40M [facility] Rx# :[id number] Intake, IV Titration 42.651 150 Amount Insulin Regular 100 unit 42.651 In Sodium Chloride 0.9% 100 ml @ 7 UNITS/HR 7.07 mls/hr IV .[id number] [facility] Rx #:[id number] Sodium Chloride 0.45% 1, 150 000 ml @ 75 mls/hr IV . [id number] [facility] Rx#:[id number] Oral 450 Output: Urine 528 680 Other: Voiding Method Indwelling Catheter Indwelling Catheter # Voids 1 # Bowel Movements 1 1 - Exam PHYSICAL EXAMINATION: Patient is lying in the bed comfortably, no acute distress, awake alert and oriented.. HEENT: Normocephalic. Neck is supple. Pupils reactive. Nostrils clear. Oral cavity is moist. Ears reveal no drainage. Neck reveals no JVD, carotid bruits, or thyromegaly. CHEST EXAMINATION: Trachea is central. Symmetrical expansion. Lung luo clear to auscultation and percussion. CARDIAC: Normal S1, S2 with no gallops. No murmurs ABDOMEN: Soft. Bowel sounds normal. No organomegaly. No abdominal bruits. Extremities: reveal no edema. No clubbing or cyanosis Neurologically awake, alert, oriented x3 with well-coordinated movements. No focal deficits noted Skin: No rash or skin lesions. Psychiatric: Coperative. Nonsuicidal Musculoskeletal: No joint swelling or deformity. Normal range of motion. - Labs CBC & Chem 7: 08/12/17 02:10 08/12/17 02:10 Labs: Abnormal Lab Results - Last 24 Hours (Table) 08/10/17 08/11/17 08/11/17 Range/Units 16:00 21:16 22:22 Plt Count (150-450) k/uL Sodium (137-145) mmol/L Chloride (98-107) mmol/L Carbon Dioxide (22-30) mmol/L Creatinine (0.52-1.04) mg/dL Glucose (74-99) mg/dL POC Glucose (mg/dL) 185 H 123 H (75-99) mg/dL Hemoglobin A1c 11.4 H (4.0-6.0) % Calcium (8.4-10.2) mg/dL AST (14-36) U/L ALT (9-52) U/L Alkaline Phosphatase (38-126) U/L Total Protein (6.3-8.2) g/dL Albumin (3.5-5.0) g/dL 08/11/17 08/12/17 08/12/17 Range/Units 23:26 00:28 01:24 Plt Count (150-450) k/uL Sodium (137-145) mmol/L Chloride (98-107) mmol/L Carbon Dioxide (22-30) mmol/L Creatinine (0.52-1.04) mg/dL Glucose (74-99) mg/dL POC Glucose (mg/dL) 107 H 111 H 131 H (75-99) mg/dL Hemoglobin A1c (4.0-6.0) % Calcium (8.4-10.2) mg/dL AST (14-36) U/L ALT (9-52) U/L Alkaline Phosphatase (38-126) U/L Total Protein (6.3-8.2) g/dL Albumin (3.5-5.0) g/dL 08/12/17 08/12/17 08/12/17 Range/Units 02:10 02:10 02:31 Plt Count 97 L (150-450) k/uL Sodium 151 H (137-145) mmol/L Chloride 123 H* (98-107) mmol/L Carbon Dioxide 21 L (22-30) mmol/L Creatinine 0.51 L (0.52-1.04) mg/dL Glucose 154 H (74-99) mg/dL POC Glucose (mg/dL) 163 H (75-99) mg/dL Hemoglobin A1c (4.0-6.0) % Calcium 8.1 L (8.4-10.2) mg/dL AST 444 H (14-36) U/L ALT 520 H (9-52) U/L Alkaline Phosphatase 130 H (38-126) U/L Total Protein 5.1 L (6.3-8.2) g/dL Albumin 2.8 L (3.5-5.0) g/dL 08/12/17 08/12/17 08/12/17 Range/Units 07:17 12:30 17:36 Plt Count (150-450) k/uL Sodium (137-145) mmol/L Chloride (98-107) mmol/L Carbon Dioxide (22-30) mmol/L Creatinine (0.52-1.04) mg/dL Glucose (74-99) mg/dL POC Glucose (mg/dL) 278 H 297 H 316 H (75-99) mg/dL Hemoglobin A1c (4.0-6.0) % Calcium (8.4-10.2) mg/dL AST (14-36) U/L ALT (9-52) U/L Alkaline Phosphatase (38-126) U/L Total Protein (6.3-8.2) g/dL Albumin (3.5-5.0) g/dL Assessment and Plan Assessment: Acute diabetic ketoacidosis acidosis Diabetes type 2 new Diagnosis. Uncontrolled with his B A1c 11.[address]_T changes in the EKG/abnormal EKG Hyponatremia due to dehydration Acute kidney injury possible ATN Elevated AST and ALT Hepatic steatosis and extensive gallstones 1 cm lesion in the pancreatic body Hypertension Hyperlipidemia Recent tooth extraction currently on antibiotics DVT prophylaxis Plan: Patient be continued on IV hydration. Patient was started on Lantus and preprandial insulin along with sliding scale.. GI was consulted due to elevated liver enzymes.. Pulmonary is following. Further recommendations based on the clinical course. Time with Patient: Greater than 30
[2017-08-12] MEDS ORDERED: INSULIN DETEMIR 100 UNIT/ML 10 ML VIAL SQ ONE (22:30)
[2017-08-13] MEDS: SODIUM CHLORIDE 0.45% 1,000 ML IV SCH ×2 (01:57→17:47)
[2017-08-13 07:19] LABS: Glucose,Whole Blood 228 mg/dL (75-99)
[2017-08-13] MEDS: INSULIN ASPART 100 UNIT/ML 1 ML 10 ML VIAL SQ SCH ×7 (08:13→20:59)
[2017-08-13] MEDS: AMOXICILLIN 875 MG TAB PO SCH ×2 (08:14→20:56)
[2017-08-13] MEDS: PANTOPRAZOLE 40 MG TABLET PO SCH (08:14)
[2017-08-13] MEDS: HEPARIN SODIUM,PORCINE 5,000 UNIT/ML 1 ML VIAL SQ SCH (08:14)
[2017-08-13 08:17] LABS: Basophils % (A) 0 %; Eosinophils # (A) 0.1 k/uL (0-0.7); Eosinophils % (A) 3 %; HCT 37.1 % (34.0-46.0); HGB 12.6 gm/dL (11.4-16.0); Lymphocytes % (A) 33 %; MCH 30.1 pg (25.0-35.0); MCHC 33.9 g/dL (31.0-37.0); MCV 88.8 fL (80.0-100.0); Mean Platelet Volume 7.3; Monocytes # (A) 0.1 k/uL (0-1.0); Monocytes % (A) 2 %; Neutrophils # (A) 1.7 k/uL (1.3-7.7); Neutrophils % (A) 60 %; RBC 4.18 m/uL (3.80-5.40); WBC 2.9 k/uL (3.8-10.6)
[2017-08-13 08:23] LABS: Platelet Count 77 k/uL (150-450)
[2017-08-13 08:40] LABS: Anion Gap 9 mmol/L; Blood Urea Nitrogen 9 mg/dL (7-17); Calcium 8.4 mg/dL (8.4-10.2); Carbon Dioxide 24 mmol/L (22-30); Chloride 113 mmol/L (98-107); Glucose 236 mg/dL (74-99); Magnesium 2.1 mg/dL (1.6-2.3); Phosphorus 2.7 mg/dL (2.5-4.5); Potassium 3.8 mmol/L (3.5-5.1); Sodium 146 mmol/L (137-145)
[2017-08-13 11:54] LABS: Glucose,Whole Blood 285 mg/dL (75-99)
--- NOTE | 2017-08-13 13:07 | P.PN ---
Subjective Progress Note Date: 08/13/17 Principal diagnosis: Sirs-like process and sepsis, severe acute metabolic acidosis related diabetic ketoacidosis, newly diagnosed diabetes mellitus, electrolyte imbalance with severe hypernatremia, elevated liver enzyme, pancreatic mass, newly diagnosed diabetes mellitus, fatty liver 08/13/2017, patient seen eval examined during the rounds she has been moved out of the ICU she is seen in the stepdown unit she is sitting upright on the bed breathing comfortably denies any chest pain denies any cough or sputum production blood today have been admitted 200 range she has been on insulin long -acting as well as short-acting with meals, patient to be evaluated by gastrointestinal services or elevated liver enzymes and a pancreatic nodule labs reviewed medications reviewed, white cell count is low along with platelet count my labs from today LFTs are not performed [place] significant thrombocytopenia is noted patient has been on subcu heparin will stop it, maintain patient on the DVT prophylaxis with early ambulation and compression devices and increase activity as tolerated maintain patient on peptic ulcer disease prophylaxis and further recommendations pending 08/12/2017, patient seen eval reexamined during the rounds clinically patient is doing slightly better in terms of the mental status and generalized weakness , patient has been evaluated in evaluated by cardiovascular services no aggressive plan has been recommended echo results are reported reviewed the ultrasound of the abdomen reviewed as well patient has a hepatic steatosis along with the lesion of 1 cm size is noted pancreatic tail, GI services has been consulted patient severe hypernatremia has improved significantly labs reviewed medications reviewed care plan discussed with patient and family present at bedside at length Patient seen eval reexamined in the ICU patient is a 57-year-old female who was transferred from [facility] her sugar was greater than 1000 that she has no history of for diabetes in the past hemoglobin A1c done back in October lost year was 5.8 she recently had a surgery done September she had some teeth extraction she was fine until yesterday when she felt weak and dizzy and she was seen in the [place] over that they noticed that sugar was greater than 1000 white count was greater than 15,000 chest x-ray was unremarkable creatinine was 1.8 this started on insulin infusion give her some fluids along with the antibiotics bicarb with a was 4 in pH was 7.01 to that EKG had some changes It did show sinus rhythm with left anterior fascicular block and possible old inferior DC. More importantly, the patient did not have any symptoms of chest pain or discomfort nor difficulty breathing nor dizziness or lightheadedness. This patient was feeling weak and dizzy, she had the about 10-12 extraction into succession in the last 2 weeks and she has been on amoxicillin and Motrin for that at home Objective - Vital Signs Vital signs: Vital Signs Temp 99.2 F 08/13/17 06:30 Pulse 71 08/13/17 06:30 Resp 18 08/13/17 06:30 BP 118/64 08/13/17 06:30 Pulse Ox 97 08/13/17 06:30 Intake & Output 08/12/17 08/13/17 08/13/17 18:59 06:59 18:59 Intake Total 700 1025 Output Total 680 Balance 20 1025 Weight 72.8 kg 72.8 kg Intake: IV 100 D5-0.45% NaCl with KCl 100 20Meq/l 1,000 ml @ 150 mls/hr IV .Q6H40M [facility] Rx# :[id number] Intake, IV Titration 150 Amount Sodium Chloride 0.45% 1, 150 000 ml @ 75 mls/hr IV . [id number] [facility] Rx#:[id number] Oral 450 1025 Output: Urine 680 Other: Voiding Method Indwelling Catheter Indwelling Catheter # Voids 1 2 # Bowel Movements 1 - Exam General: The patient is awake , she looks dehydrated GCS is 15 Skin: Skin is warm and dry and no rashes or lesions are noted. Eye: Pupils are equal, round and reactive to light, extra-ocular movements are intact; there is normal conjunctiva bilaterally. Ears, nose, mouth and throat: There are moist mucous membranes and no oral lesions. Neck: The neck is supple, there is no tenderness or JVD. Cardiovascular: There is sinus tachycardia Respiratory: To auscultation bilateral, no wheezing no rhonchi no distress respiratory park noticed Gastrointestinal: Soft, non-distended, non-tender abdomen without masses or organomegaly noted. There is no rebound or guarding present. Bowel sounds are unremarkable. Back: There is no tenderness to palpation in the midline. There is no obvious deformity. Musculoskeletal: Normal ROM, no tenderness, There is no pedal edema. There is no calf tenderness or swelling. No cords were appreciated. Neurological: CN II-XII intact, Cranial nerves III through XII are intact. There are no obvious motor or sensory deficits. Coordination appears grossly intact. Speech is normal. Psychiatric: Cooperative, appropriate mood & affect, normal judgment. - Labs CBC & Chem 7: 08/13/17 08:04 08/13/17 08:04 Labs: Abnormal Lab Results - Last 24 Hours (Table) 08/12/17 08/12/17 08/13/17 Range/Units 17:36 20:34 07:12 WBC (3.8-10.6) k/uL Plt Count (150-450) k/uL Sodium (137-145) mmol/L Chloride (98-107) mmol/L Creatinine (0.52-1.04) mg/dL Glucose (74-99) mg/dL POC Glucose (mg/dL) 316 H 322 H 228 H (75-99) mg/dL 08/13/17 08/13/17 08/13/17 Range/Units 08:04 08:04 11:50 WBC 2.9 L (3.8-10.6) k/uL Plt Count 77 L (150-450) k/uL Sodium 146 H (137-145) mmol/L Chloride 113 H (98-107) mmol/L Creatinine 0.46 L (0.52-1.04) mg/dL Glucose 236 H (74-99) mg/dL POC Glucose (mg/dL) 285 H (75-99) mg/dL Assessment and Plan Assessment: Neutropenia and thrombocytopenia Elevated liver enzyme Hepatic steatosis/fatty liver Pancreatic tail mass 1 cm Sirs-like process versus early sepsis Severe acute metabolic acidosis related diabetic ketoacidosis Electrolyte imbalance with severe hypernatremia Elevated liver enzyme likely transaminitis with normal total bilirubin Newly diagnosed diabetes mellitus uncontrolled hyperglycemia Plan: Aggressive fluid hydration Serve off of heparin monitor labs closely Change IV fluids from normal saline to half normal saline Insulin drip has been discontinued now patient is placed on Lantus along with NovoLog I'll up on liver enzymes and electrolytes, initiate GI consultation DVT prophylaxis and peptic ulcer disease prophylaxis Deep breathing exercise incentive spirometry Further recommendations pending plan of care as per clinical response of the patient Time with Patient: Greater than 30
[2017-08-13 17:10] LABS: Glucose,Whole Blood 284 mg/dL (75-99)
[2017-08-13 18:48] LABS: ALT 872 U/L (9-52); AST 704 U/L (14-36)
[2017-08-13 20:29] LABS: Glucose,Whole Blood 254 mg/dL (75-99)
[2017-08-13] MEDS ORDERED: INSULIN DETEMIR 100 UNIT/ML 10 ML VIAL SQ SCH (21:00)
--- NOTE | 2017-08-13 23:29 | P.PN ---
Subjective Progress Note Date: 08/13/17 Principal diagnosis: Acute diabetic ketoacidosis Patient is a 57 old female with out a known history of diabetes was transferred from [facility] with sugar is greater than 1000. Patient had last his B A1c in October 2016 was 5.8. Patient recently had tooth extraction and infection and is currently on antibiotics for that. Patient presented to ER with complaints of generalized weakness and dizziness. Patient was found to have in DKA. Patient also having dehydration and hypernatremia. EKG showed sinus rhythm with left anterior fascicular block. Pulmonary and cardiology was consulted. 08/11/2017 currently patient is still in DKA and is on insulin drip. Anion gap is 14 at this time. Otherwise patient is having elevated liver enzymes AST and ALT which are trending up at this time. Ultrasound of the abdomen was ordered. Cardiology has seen the patient and recommended 2-D echocardiogram. Patient denied any fever or chills. No nausea vomiting or abdominal pain. No dysuria or hematuria. No cough is from production. Currently HB A1c 11.4 08/12/2017 DKA has resolved. Patient is still hyponatremic. IV fluids have been changed to half-normal saline. patient still having elevated liver enzymes. Ultrasound of the ABDOMEN SHOWED hepatic steatosis. 1 cm lesion in the pancreatic body. Extensive cholelithiasis. No fever no chills. Denied any abdominal pain. No nausea vomiting. No chest pain or shortness of breath. Patient did improve clinically. Patient is still hyperglycemic today. Currently being transferred to general medical floor. 08/13/2017 Patient did improve symptomatically. Able to tolerate diet. Blood sugar is still elevated. Her Lantus dose has been increased otherwise. We will follow up liver enzymes tomorrow. Awaiting GI recommendations. Otherwise likely discharge in next 24-48 hours pending liver enzymes trend. No other acute overnight issues. All other review of systems negative except the above Current medications reviewed Active Medications Generic Name Dose Route Start Last Admin Trade Name Freq PRN Reason Stop Dose Admin Acetaminophen 650 mg 08/10/17 16:08 Tylenol Tab PO Q4HR PRN Fever and/or Mild Pain Amoxicillin 875 mg 08/10/17 21:00 08/12/17 20:56 Amoxicillin PO 875 mg Q12HR VENKATESH Administration Heparin Sodium (Porcine) 5,000 unit 08/10/17 18:30 08/12/17 16:33 Heparin SQ 5,000 unit Q8HR VENKATESH Administration Sodium Chloride 1,000 mls @ 75 mls/hr 08/12/17 12:45 08/12/17 13:01 Saline 0.45% IV 75 mls/hr .[id number] VENKATESH Administration Insulin Aspart 0 unit 08/12/17 07:30 08/12/17 20:56 Novolog SQ 5 unit ACHS VENKATESH Administration Protocol Insulin Aspart 7 unit 08/12/17 22:04 Novolog SQ AC-TID VENKATESH Insulin Detemir 21 unit 08/13/17 21:00 Levemir SQ HS VENKATESH Insulin Detemir 11 unit 08/12/17 22:30 Levemir SQ 08/12/17 22:31 ONCE ONE Miscellaneous Information 1 each 08/11/17 14:30 Phosphorus Per Protocol MISCELLANE DAILY PRN Per Protocol Protocol Miscellaneous Information 1 each 08/11/17 15:05 Potassium Per Protocol MISCELLANE DAILY PRN Per Protocol Protocol Miscellaneous Information 1 each 08/11/17 17:48 Magnesium Per Protocol MISCELLANE DAILY PRN Per Protocol Protocol Naloxone HCl 0.2 mg 08/10/17 16:08 Narcan IV Q2M PRN Opioid Reversal Pantoprazole Sodium 40 mg 08/13/17 07:30 Protonix PO AC-BRKFST [facility] Objective - Vital Signs Vital signs: Vital Signs Temp 98.2 F 08/13/17 22:50 Pulse 77 08/13/17 22:50 Resp 18 08/13/17 22:50 BP 120/81 08/13/17 22:50 Pulse Ox 95 08/13/17 22:50 Intake & Output 08/13/17 08/13/17 08/14/17 06:59 18:59 06:59 Intake Total 1025 1080 Balance 1025 1080 Weight 72.8 kg Intake: Intake, IV Titration 600 Amount Sodium Chloride 0.45% 1, 600 000 ml @ 75 mls/hr IV . [id number] [facility] Rx#:[id number] Oral 1025 480 Other: Voiding Method Indwelling Catheter # Voids 2 5 - Exam PHYSICAL EXAMINATION: Patient is lying in the bed comfortably, no acute distress, awake alert and oriented.. HEENT: Normocephalic. Neck is supple. Pupils reactive. Nostrils clear. Oral cavity is moist. Ears reveal no drainage. Neck reveals no JVD, carotid bruits, or thyromegaly. CHEST EXAMINATION: Trachea is central. Symmetrical expansion. Lung luo clear to auscultation and percussion. CARDIAC: Normal S1, S2 with no gallops. No murmurs ABDOMEN: Soft. Bowel sounds normal. No organomegaly. No abdominal bruits. Extremities: reveal no edema. No clubbing or cyanosis Neurologically awake, alert, oriented x3 with well-coordinated movements. No focal deficits noted Skin: No rash or skin lesions. Psychiatric: Coperative. Nonsuicidal Musculoskeletal: No joint swelling or deformity. Normal range of motion. - Labs CBC & Chem 7: 08/13/17 08:04 08/13/17 08:04 Labs: Abnormal Lab Results - Last 24 Hours (Table) 08/13/17 08/13/17 08/13/17 Range/Units 07:12 08:04 08:04 WBC 2.9 L (3.8-10.6) k/uL Plt Count 77 L (150-450) k/uL Sodium 146 H (137-145) mmol/L Chloride 113 H (98-107) mmol/L Creatinine 0.46 L (0.52-1.04) mg/dL Glucose 236 H (74-99) mg/dL POC Glucose (mg/dL) 228 H (75-99) mg/dL AST (14-36) U/L ALT (9-52) U/L 08/13/17 08/13/17 08/13/17 Range/Units 08:04 11:50 17:01 WBC (3.8-10.6) k/uL Plt Count (150-450) k/uL Sodium (137-145) mmol/L Chloride (98-107) mmol/L Creatinine (0.52-1.04) mg/dL Glucose (74-99) mg/dL POC Glucose (mg/dL) 285 H 284 H (75-99) mg/dL AST 704 H (14-36) U/L ALT 872 H (9-52) U/L 08/13/17 Range/Units 20:28 WBC (3.8-10.6) k/uL Plt Count (150-450) k/uL Sodium (137-145) mmol/L Chloride (98-107) mmol/L Creatinine (0.52-1.04) mg/dL Glucose (74-99) mg/dL POC Glucose (mg/dL) 254 H (75-99) mg/dL AST (14-36) U/L ALT (9-52) U/L Assessment and Plan Assessment: Acute diabetic ketoacidosis acidosis. Resolved Diabetes type 2 new Diagnosis. Uncontrolled with hyperglycemia B A1c 11.[address]_T changes in the EKG/abnormal EKG Hypernatremia due to dehydration. Sodium level CXLVI Acute kidney injury possible ATN. Improved Elevated AST and ALT Hepatic steatosis and extensive gallstones 1 cm lesion in the pancreatic body Hypertension Hyperlipidemia Recent tooth extraction currently on antibiotics DVT prophylaxis Plan: Patient be continued on IV hydration. Patient was started on Lantus and preprandial insulin along with sliding scale.. GI was consulted due to elevated liver enzymes.. Pulmonary is following. Further recommendations based on the clinical course. Time with Patient: Greater than 30
[2017-08-14 07:05] LABS: Glucose,Whole Blood 218 mg/dL (75-99)
[2017-08-14] MEDS: INSULIN ASPART 100 UNIT/ML 1 ML 10 ML VIAL SQ SCH ×8 (07:50→21:28)
[2017-08-14] MEDS: PANTOPRAZOLE 40 MG TABLET PO SCH (07:51)
[2017-08-14] MEDS: AMOXICILLIN 875 MG TAB PO SCH (07:52)
[2017-08-14 08:25] LABS: Basophils % (A) 1 %; Eosinophils # (A) 0.1 k/uL (0-0.7); Eosinophils % (A) 4 %; HCT 37.5 % (34.0-46.0); Lymphocytes # (A) 1.1 k/uL (1.0-4.8); Lymphocytes % (A) 36 %; MCH 30.3 pg (25.0-35.0); MCHC 34.7 g/dL (31.0-37.0); MCV 87.1 fL (80.0-100.0); Mean Platelet Volume 7.9; Monocytes # (A) 0.1 k/uL (0-1.0); Monocytes % (A) 3 %; Neutrophils # (A) 1.7 k/uL (1.3-7.7); Neutrophils % (A) 55 %; WBC 3.1 k/uL (3.8-10.6)
[2017-08-14 08:26] LABS: Platelet Count 70 k/uL (150-450)
[2017-08-14 08:41] LABS: Albumin 2.8 g/dL (3.5-5.0); Alkaline Phosphatase 205 U/L (38-126); Anion Gap 8 mmol/L; Blood Urea Nitrogen 8 mg/dL (7-17); Calcium 8.7 mg/dL (8.4-10.2); Carbon Dioxide 27 mmol/L (22-30); Chloride 109 mmol/L (98-107); Cholesterol 170 mg/dL (<200); Glucose 219 mg/dL (74-99); HDL Cholesterol 51 mg/dL (40-60); LDL Cholesterol,Calculated 75 mg/dL (0-99); Phosphorus 3.3 mg/dL (2.5-4.5); Potassium 3.7 mmol/L (3.5-5.1); Sodium 144 mmol/L (137-145); Total Bilirubin 1.3 mg/dL (0.2-1.3); Total Protein 5.2 g/dL (6.3-8.2); Triglycerides 218 mg/dL (<150)
[2017-08-14 08:50] LABS: ALT 1351 U/L (9-52); AST 1111 U/L (14-36)
[2017-08-14 12:24] LABS: Glucose,Whole Blood 269 mg/dL (75-99)
--- NOTE | 2017-08-14 14:08 | P.PN ---
Subjective Progress Note Date: 08/14/17 Principal diagnosis: Sirs-like process and sepsis, severe acute metabolic acidosis related diabetic ketoacidosis, newly diagnosed diabetes mellitus, electrolyte imbalance with severe hypernatremia, elevated liver enzyme, pancreatic mass, newly diagnosed diabetes mellitus, fatty liver 08/14/2017, patient seen eval reexamined during the rounds she is sitting upright on the bed breathing comfortably denies any chest pain sugar continued to run on higher side ranging from September 2 100 to high 200 range insulin doses gradually adjusted her electrolytes have improved, white cell count continue to improve, platelets are stable but still on the lower side of 70,000. Functions are stable sodium has improved to 144 chloride is 109, and her liver function however continued to be on the rise AST is over 1111 AST is 1351, with a rising total bilirubin, patient is being where by GI services as well 08/13/2017, patient seen eval examined during the rounds she has been moved out of the ICU she is seen in the stepdown unit she is sitting upright on the bed breathing comfortably denies any chest pain denies any cough or sputum production blood today have been admitted 200 range she has been on insulin long -acting as well as short-acting with meals, patient to be evaluated by gastrointestinal services or elevated liver enzymes and a pancreatic nodule labs reviewed medications reviewed, white cell count is low along with platelet count my labs from today LFTs are not performed [place] significant thrombocytopenia is noted patient has been on subcu heparin will stop it, maintain patient on the DVT prophylaxis with early ambulation and compression devices and increase activity as tolerated maintain patient on peptic ulcer disease prophylaxis and further recommendations pending 08/12/2017, patient seen eval reexamined during the rounds clinically patient is doing slightly better in terms of the mental status and generalized weakness , patient has been evaluated in evaluated by cardiovascular services no aggressive plan has been recommended echo results are reported reviewed the ultrasound of the abdomen reviewed as well patient has a hepatic steatosis along with the lesion of 1 cm size is noted pancreatic tail, GI services has been consulted patient severe hypernatremia has improved significantly labs reviewed medications reviewed care plan discussed with patient and family present at bedside at length Patient seen eval reexamined in the ICU patient is a 57-year-old female who was transferred from [facility] her sugar was greater than 1000 that she has no history of for diabetes in the past hemoglobin A1c done back in October lost year was 5.8 she recently had a surgery done September she had some teeth extraction she was fine until yesterday when she felt weak and dizzy and she was seen in the [facility] over that they noticed that sugar was greater than 1000 white count was greater than 15,000 chest x-ray was unremarkable creatinine was 1.8 this started on insulin infusion give her some fluids along with the antibiotics bicarb with a was 4 in pH was 7.01 to that EKG had some changes It did show sinus rhythm with left anterior fascicular block and possible old inferior NE. More importantly, the patient did not have any symptoms of chest pain or discomfort nor difficulty breathing nor dizziness or lightheadedness. This patient was feeling weak and dizzy, she had the about 10-12 extraction into succession in the last 2 weeks and she has been on amoxicillin and Motrin for that at home Objective - Vital Signs Vital signs: Vital Signs Temp 98.6 F 08/14/17 06:01 Pulse 75 08/14/17 06:01 Resp 18 08/14/17 06:01 BP 117/80 08/14/17 06:01 Pulse Ox 95 08/14/17 06:01 Intake & Output 08/13/17 08/14/17 08/14/17 18:59 06:59 18:59 Intake Total 1080 Balance 1080 Intake: Intake, IV Titration 600 Amount Sodium Chloride 0.45% 1, 600 000 ml @ 75 mls/hr IV . [id number] [facility] Rx#:[id number] Oral 480 Other: # Voids 5 1 - Exam General: The patient is awake , she looks dehydrated GCS is 15 Skin: Skin is warm and dry and no rashes or lesions are noted. Eye: Pupils are equal, round and reactive to light, extra-ocular movements are intact; there is normal conjunctiva bilaterally. Ears, nose, mouth and throat: There are moist mucous membranes and no oral lesions. Neck: The neck is supple, there is no tenderness or JVD. Cardiovascular: There is sinus tachycardia Respiratory: To auscultation bilateral, no wheezing no rhonchi no distress respiratory park noticed Gastrointestinal: Soft, non-distended, non-tender abdomen without masses or organomegaly noted. There is no rebound or guarding present. Bowel sounds are unremarkable. Back: There is no tenderness to palpation in the midline. There is no obvious deformity. Musculoskeletal: Normal ROM, no tenderness, There is no pedal edema. There is no calf tenderness or swelling. No cords were appreciated. Neurological: CN II-XII intact, Cranial nerves III through XII are intact. There are no obvious motor or sensory deficits. Coordination appears grossly intact. Speech is normal. Psychiatric: Cooperative, appropriate mood & affect, normal judgment. - Labs CBC & Chem 7: 08/14/17 07:39 08/14/17 07:39 Labs: Abnormal Lab Results - Last 24 Hours (Table) 08/13/17 08/13/17 08/13/17 Range/Units 08:04 17:01 20:28 WBC (3.8-10.6) k/uL Plt Count (150-450) k/uL Chloride (98-107) mmol/L Creatinine (0.52-1.04) mg/dL Glucose (74-99) mg/dL POC Glucose (mg/dL) 284 H 254 H (75-99) mg/dL AST 704 H (14-36) U/L ALT 872 H (9-52) U/L Alkaline Phosphatase (38-126) U/L Total Protein (6.3-8.2) g/dL Albumin (3.5-5.0) g/dL Triglycerides (<150) mg/dL 08/14/17 08/14/17 08/14/17 Range/Units 06:55 07:39 07:39 WBC 3.1 L (3.8-10.6) k/uL Plt Count 70 L (150-450) k/uL Chloride 109 H (98-107) mmol/L Creatinine 0.46 L (0.52-1.04) mg/dL Glucose 219 H (74-99) mg/dL POC Glucose (mg/dL) 218 H (75-99) mg/dL AST 1111 H (14-36) U/L ALT 1351 H (9-52) U/L Alkaline Phosphatase 205 H (38-126) U/L Total Protein 5.2 L (6.3-8.2) g/dL Albumin 2.8 L (3.5-5.0) g/dL Triglycerides 218 H (<150) mg/dL 08/14/17 Range/Units 12:16 WBC (3.8-10.6) k/uL Plt Count (150-450) k/uL Chloride (98-107) mmol/L Creatinine (0.52-1.04) mg/dL Glucose (74-99) mg/dL POC Glucose (mg/dL) 269 H (75-99) mg/dL AST (14-36) U/L ALT (9-52) U/L Alkaline Phosphatase (38-126) U/L Total Protein (6.3-8.2) g/dL Albumin (3.5-5.0) g/dL Triglycerides (<150) mg/dL Assessment and Plan Assessment: Neutropenia and thrombocytopenia Elevated liver enzyme/acute hepatitis Hepatic steatosis/fatty liver Pancreatic tail mass 1 cm Sirs-like process versus early sepsis Severe acute metabolic acidosis related diabetic ketoacidosis Electrolyte imbalance with severe hypernatremia Elevated liver enzyme likely transaminitis with normal total bilirubin Newly diagnosed diabetes mellitus uncontrolled hyperglycemia Plan: Aggressive fluid hydration Observe off of heparin monitor labs closely Continue gentle hydration Off of insulin drip now patient is placed on Lantus along with NovoLog, doses are being adjusted DVT prophylaxis and peptic ulcer disease prophylaxis Deep breathing exercise incentive spirometry Further recommendations pending plan of care as per clinical response of the patient Time with Patient: Greater than 30
[2017-08-14 17:19] LABS: Glucose,Whole Blood 295 mg/dL (75-99)
[2017-08-14 20:47] LABS: Glucose,Whole Blood 246 mg/dL (75-99)
[2017-08-14 20:48] LABS: Hepatitis A Antibody IgM Non-Reactive (Non-Reactive); Hepatitis B Core IgM Non-Reactive (Non-Reactive)
[2017-08-14] MEDS ORDERED: INSULIN DETEMIR 100 UNIT/ML 10 ML VIAL SQ SCH (21:00)
--- NOTE | 2017-08-14 23:03 | CONS ---
CONSULTATION DATE OF DICTATION: 08/14/2017 REASON FOR CONSULTATION: Elevated LFTs. HISTORY OF PRESENT ILLNESS: This is a 57-year-old pleasant white female with no significant past medical history. She was admitted to the hospital with newly diagnosed diabetes mellitus. In fact, when she presented to the hospital she was noted to have a blood sugar of 1000. She presented with weakness, fatigue, nausea, vomiting and was in DKA. She was in the intensive care unit, was started on IV insulin drip. The patient and was transferred to the floor. While in the hospital she was noted to have elevated serum transaminases and hence we are consulted in regards to this issue. The patient has no prior history of chronic liver disease. No history of jaundice or hepatitis. No alcohol use. She was on no medications prior to recent hospitalization. She had some dental procedure last tooth was yesterday. Her labs at the time of admission to the hospital showed an AST of 72, ALT of 257, and alkaline phosphatase was 177. Total bilirubin was 0.3. Subsequently on August 11, AST was 129 and ALT was 296. Yesterday AST was 704 and ALT was 872. Today AST is up to 1111 and ALT is 1351. T-bilirubin is normal. Alkaline phosphatase is 205. Hepatitis serologies for A, B and C were negative. The patient denies any alcohol use. She never had chronic liver disease in the past. PAST MEDICAL HISTORY: 1. Hypertension. 2. Hyperlipidemia. 3. Newly diagnosed diabetes mellitus. MEDICATIONS PRIOR TO ADMISSION: Amoxicillin and Motrin. ALLERGIES: NO KNOWN DRUG ALLERGIES. SOCIAL HISTORY: No smoking or alcohol use. FAMILY HISTORY: Unremarkable. REVIEW OF SYSTEMS: CARDIOPULMONARY: No chest pain, shortness of breath. GENITOURINARY: No dysuria or hematuria. MUSCULOSKELETAL: Unremarkable. SKIN: Unremarkable. ENDOCRINE: Unremarkable. PSYCHIATRY: Unremarkable. NEUROLOGY: Unremarkable. ENT/VISION: Unremarkable. CONSTITUTIONAL: No recent weight loss. No fever, chills, night sweats. PHYSICAL EXAMINATION: She appears comfortable. No apparent distress. Vital signs are stable. Blood pressure is 117/80, pulse rate 75, afebrile. HEENT EXAMINATION: Unremarkable. Conjunctivae pink. Sclerae anicteric. Oral cavity no lesions. clear to auscultation. HEART: Regular rate and rhythm. ABDOMEN: Soft, nontender, nondistended. EXTREMITIES: No pedal edema. SKIN: No rashes. NEUROLOGIC: Alert and oriented x3. No focal deficits. LABS: Today WBC is 3.1, hemoglobin 13, platelets 70,000. AST today is 1111, ALT is 1351, alkaline phosphatase 205, and T-bilirubin 1.3. Upon admission, , AST 72, ALT 257, and alkaline phosphatase 177. T-bilirubin was 0.3. Hepatitis serology for A, B and C negative. Amylase and lipase are normal. IMPRESSION: This is a patient who was admitted to the hospital with DKA/newly diagnosed diabetes with blood sugars of 1000. At the time of admission to the hospital the last 4 days serum transaminases have been gradually increasing, and today both of them are in the range of 1000 and 1300, respectively. She has no prior history of chronic liver disease; in fact, has not been on any prescription medications. She was prescribed amoxicillin for a dental procedure that was done about 10 days ago. Patient in the past did take amoxicillin with no significant side effects. She denies using any other antibiotics or any [id number] medications in the last one month. No documented episodes of during this hospital stay. Clinical picture is consistent with acute hepatitis hepatocellular process. Possibility of etiology/medication needs to be considered. Other causes, such as autoimmune . RECOMMENDATIONS: Will initiate further workup. I have requested antinuclear antibody, anti-smooth muscle antibody, serum protein electrophoresis, EBV and CMV serologies, IgM serologies. In the meantime, we will repeat serum transaminases tomorrow. She has already stopped amoxicillin for now. At this time we will repeat serum transaminases on a daily basis. Once they start showing improvement, she can be discharged home with the rest of the workup done on an outpatient basis. The plan was discussed with the patient as well as her family present at the bedside. They are agreeable to it. Thank you for this consultation. TIFFANIE / VEE: [id number] /
--- NOTE | 2017-08-15 01:10 | P.PN ---
Subjective Progress Note Date: 08/14/17 Principal diagnosis: Acute diabetic ketoacidosis Patient is a 57 old female with out a known history of diabetes was transferred from [facility] with sugar is greater than 1000. Patient had last his B A1c in October 2016 was 5.8. Patient recently had tooth extraction and infection and is currently on antibiotics for that. Patient presented to ER with complaints of generalized weakness and dizziness. Patient was found to have in DKA. Patient also having dehydration and hypernatremia. EKG showed sinus rhythm with left anterior fascicular block. Pulmonary and cardiology was consulted. 08/11/2017 currently patient is still in DKA and is on insulin drip. Anion gap is 14 at this time. Otherwise patient is having elevated liver enzymes AST and ALT which are trending up at this time. Ultrasound of the abdomen was ordered. Cardiology has seen the patient and recommended 2-D echocardiogram. Patient denied any fever or chills. No nausea vomiting or abdominal pain. No dysuria or hematuria. No cough is from production. Currently HB A1c 11.4 08/12/2017 DKA has resolved. Patient is still hyponatremic. IV fluids have been changed to half-normal saline. patient still having elevated liver enzymes. Ultrasound of the ABDOMEN SHOWED hepatic steatosis. 1 cm lesion in the pancreatic body. Extensive cholelithiasis. No fever no chills. Denied any abdominal pain. No nausea vomiting. No chest pain or shortness of breath. Patient did improve clinically. Patient is still hyperglycemic today. Currently being transferred to general medical floor. 08/13/2017 Patient did improve symptomatically. Able to tolerate diet. Blood sugar is still elevated. Her Lantus dose has been increased otherwise. We will follow up liver enzymes tomorrow. Awaiting GI recommendations. Otherwise likely discharge in next 24-48 hours pending liver enzymes trend. No other acute overnight issues. 08/14/2017 Patient is still having continuously elevated AST ALT. Otherwise no complaints of abdominal pain nausea or vomiting. Patient is tolerating oral diet. Blood sugar is fairly controlled otherwise. Patient was seen by gastrology and recommended autoimmune workup and EBV and CMV serologies. Continue to monitor transaminases tomorrow. Otherwise no fever no chills. Patient is not on any statins. Triglycerides 218 All other review of systems negative except the above Current medications reviewed Active Medications Generic Name Dose Route Start Last Admin Trade Name Freq PRN Reason Stop Dose Admin Acetaminophen 650 mg 08/10/17 16:08 Tylenol Tab PO Q4HR PRN Fever and/or Mild Pain Amoxicillin 875 mg 08/10/17 21:00 08/12/17 20:56 Amoxicillin PO 875 mg Q12HR VENKATESH Administration Heparin Sodium (Porcine) 5,000 unit 08/10/17 18:30 08/12/17 16:33 Heparin SQ 5,000 unit Q8HR VENKATESH Administration Sodium Chloride 1,000 mls @ 75 mls/hr 08/12/17 12:45 08/12/17 13:01 Saline 0.45% IV 75 mls/hr .[id number] VENKATESH Administration Insulin Aspart 0 unit 08/12/17 07:30 08/12/17 20:56 Novolog SQ 5 unit ACHS [facility] Administration Protocol Insulin Aspart 7 unit 08/12/17 22:04 Novolog SQ AC-TID [facility] Insulin Detemir 21 unit 08/13/17 21:00 Levemir SQ HS [facility] Insulin Detemir 11 unit 08/12/17 22:30 Levemir SQ 08/12/17 22:31 ONCE ONE Miscellaneous Information 1 each 08/11/17 14:30 Phosphorus Per Protocol MISCELLANE DAILY PRN Per Protocol Protocol Miscellaneous Information 1 each 08/11/17 15:05 Potassium Per Protocol MISCELLANE DAILY PRN Per Protocol Protocol Miscellaneous Information 1 each 08/11/17 17:48 Magnesium Per Protocol MISCELLANE DAILY PRN Per Protocol Protocol Naloxone HCl 0.2 mg 08/10/17 16:08 Narcan IV Q2M PRN Opioid Reversal Pantoprazole Sodium 40 mg 08/13/17 07:30 Protonix PO AC-BRKFST [facility] Objective - Vital Signs Vital signs: Vital Signs Temp 98.5 F 08/14/17 14:28 Pulse 84 08/14/17 14:28 Resp 16 08/14/17 14:28 BP 130/84 08/14/17 14:28 Pulse Ox 96 08/14/17 14:28 Intake & Output 08/14/17 08/14/17 08/15/17 06:59 18:59 06:59 Other: # Voids 1 4 - Exam PHYSICAL EXAMINATION: Patient is lying in the bed comfortably, no acute distress, awake alert and oriented.. HEENT: Normocephalic. Neck is supple. Pupils reactive. Nostrils clear. Oral cavity is moist. Ears reveal no drainage. Neck reveals no JVD, carotid bruits, or thyromegaly. CHEST EXAMINATION: Trachea is central. Symmetrical expansion. Lung luo clear to auscultation and percussion. CARDIAC: Normal S1, S2 with no gallops. No murmurs ABDOMEN: Soft. Bowel sounds normal. No organomegaly. No abdominal bruits. Extremities: reveal no edema. No clubbing or cyanosis Neurologically awake, alert, oriented x3 with well-coordinated movements. No focal deficits noted Skin: No rash or skin lesions. Psychiatric: Coperative. Nonsuicidal Musculoskeletal: No joint swelling or deformity. Normal range of motion. - Labs CBC & Chem 7: 08/14/17 07:39 08/14/17 07:39 Labs: Abnormal Lab Results - Last 24 Hours (Table) 08/14/17 08/14/17 08/14/17 Range/Units 06:55 07:39 07:39 WBC 3.1 L (3.8-10.6) k/uL Plt Count 70 L (150-450) k/uL Chloride 109 H (98-107) mmol/L Creatinine 0.46 L (0.52-1.04) mg/dL Glucose 219 H (74-99) mg/dL POC Glucose (mg/dL) 218 H (75-99) mg/dL AST 1111 H (14-36) U/L ALT 1351 H (9-52) U/L Alkaline Phosphatase 205 H (38-126) U/L Total Protein 5.2 L (6.3-8.2) g/dL Albumin 2.8 L (3.5-5.0) g/dL Triglycerides 218 H (<150) mg/dL 08/14/17 08/14/17 08/14/17 Range/Units 12:16 17:09 20:43 WBC (3.8-10.6) k/uL Plt Count (150-450) k/uL Chloride (98-107) mmol/L Creatinine (0.52-1.04) mg/dL Glucose (74-99) mg/dL POC Glucose (mg/dL) 269 H 295 H 246 H (75-99) mg/dL AST (14-36) U/L ALT (9-52) U/L Alkaline Phosphatase (38-126) U/L Total Protein (6.3-8.2) g/dL Albumin (3.5-5.0) g/dL Triglycerides (<150) mg/dL Assessment and Plan Assessment: Acute diabetic ketoacidosis acidosis. Resolved Diabetes type 2 new Diagnosis. Uncontrolled with hyperglycemia B A1c 11.4 Metabolic acidosis SIRS likely due to DKA. No evidence of sepsis noted ST_T changes in the EKG/abnormal EKG Hypernatremia due to dehydration. Sodium level improved Acute kidney injury possible ATN. Improved Elevated AST and ALT Hepatic steatosis and extensive gallstones 1 cm lesion in the pancreatic body Hypertension Hyperlipidemia Recent tooth extraction currently on antibiotics DVT prophylaxis Plan: Patient be continued on IV hydration. Patient was started on Lantus and preprandial insulin along with sliding scale.. Lantus dose increased to 24 units and aspart 8 units 3 times a day before meals. GI was consulted due to elevated liver enzymes.. Impression recommendations. Pulmonary is following. Further recommendations based on the clinical course. Time with Patient: Greater than 30
[2017-08-15 06:49] LABS: Glucose,Whole Blood 91 mg/dL (75-99)
[2017-08-15] MEDS: INSULIN ASPART 100 UNIT/ML 1 ML 10 ML VIAL SQ SCH ×7 (07:31→20:56)
[2017-08-15 07:56] LABS: Basophils % (A) 0 %; Eosinophils # (A) 0.1 k/uL (0-0.7); Eosinophils % (A) 3 %; HGB 13.2 gm/dL (11.4-16.0); Lymphocytes # (A) 1.2 k/uL (1.0-4.8); Lymphocytes % (A) 37 %; MCH 29.9 pg (25.0-35.0); MCHC 33.9 g/dL (31.0-37.0); MCV 88.4 fL (80.0-100.0); Mean Platelet Volume 8.8; Monocytes # (A) 0.1 k/uL (0-1.0); Monocytes % (A) 5 %; Neutrophils # (A) 1.7 k/uL (1.3-7.7); Neutrophils % (A) 53 %; RBC 4.41 m/uL (3.80-5.40); RDW 14.3 % (11.5-15.5); WBC 3.2 k/uL (3.8-10.6)
[2017-08-15 08:01] LABS: Platelet Count 71 k/uL (150-450)
[2017-08-15] MEDS: PANTOPRAZOLE 40 MG TABLET PO SCH (08:06)
[2017-08-15 08:16] LABS: Alkaline Phosphatase 228 U/L (38-126); Anion Gap 10 mmol/L; Blood Urea Nitrogen 7 mg/dL (7-17); Calcium 8.9 mg/dL (8.4-10.2); Carbon Dioxide 31 mmol/L (22-30); Chloride 108 mmol/L (98-107); Glucose 96 mg/dL (74-99); Phosphorus 4.1 mg/dL (2.5-4.5); Potassium 3.5 mmol/L (3.5-5.1); Sodium 149 mmol/L (137-145); Total Bilirubin 1.4 mg/dL (0.2-1.3); Total Protein 5.4 g/dL (6.3-8.2)
[2017-08-15 08:36] LABS: ALT 1645 U/L (9-52); AST 1314 U/L (14-36)
[2017-08-15 11:40] LABS: Ceruloplasmin 35.1 mg/dL (20.0-60.0)
[2017-08-15 11:53] LABS: Glucose,Whole Blood 257 mg/dL (75-99)
[2017-08-15 12:19] LABS: Iron Saturation 63.67 (12.00-45.00); Protein, Total 5.3 g/dL (6.2-8.2)
--- NOTE | 2017-08-15 14:43 | PN ---
PROGRESS NOTE DATE OF SERVICE: 08/15/2017 Patient is a 57-year-old pleasant white female admitted to hospital with DKA and while in the hospital, was noted to have acute elevation of serum transaminases and hence we are consulted. At the time of admission, the hospital serum transaminases were minimally elevated, but as of today, they have significantly increased with an ALT and AST at 1314 and 1645 respectively. T bilirubin also increased to 1.4. So far, workup including hepatitis serologies for A, B, and C were negative. Ultrasound of the abdomen done 2 days ago showed a round hyperechoic area visualized within the pancreatic body measuring 1 cm in size. Liver has some steatosis, gallbladder was contracted with numerous calculi. No definite fluid noted around the gallbladder. CBD was within normal limits. Patient today denies any symptoms. No abdominal pain. No nausea, vomiting. She is feeling well and requesting to be discharged home. PHYSICAL EXAMINATION: Appears comfortable, in no apparent distress. Vital signs are stable, blood pressure is 105/71, pulse rate 69, temperature 98.2. HEENT EXAMINATION: Unremarkable, conjunctivae are pink, sclerae nonicteric, oral cavity no lesions. NECK: No JVD or lymph node enlargement. CHEST: Clear to auscultation. HEART: Regular rate and rhythm. ABDOMEN: Soft. Bowel sounds are positive. No organomegaly. EXTREMITIES: No pedal edema. SKIN: No rashes. NEURO: Alert and oriented x3. No focal deficits. LABS: From today, WBC 3.2, hemoglobin 13.2, platelets 71. AST 1314, ALT 1645, alk phos 228, and T-bili 1.4. IMPRESSION: 1. The patient presents to the hospital with acute diabetic ketoacidosis and new onset diabetes mellitus with uncontrolled hyperglycemia, on insulin drip. Did well and transferred to the floor. Blood sugars are under reasonable control. 2. Acute elevation of serum transaminases for the last 4 days' duration which have been gradually increasing. On extensive review of her medications the patient has only taken amoxicillin and Motrin prior to this hospitalization. So far, workup including hepatitis serologies for A, B, and C have been negative. Ultrasound did show a small 1 cm lesion in the head of the pancreas and hepatic steatosis. Further workup for liver disease is still pending. RECOMMENDATIONS: 1. Await workup for chronic liver disease. 2. Because of ultrasound findings that showed a small lesion, hypoechoic cystic lesion in the head of the pancreas, I will schedule the patient for an MRI of the pancreas as well as MRCP today. 3. Await rest of the workup and will continue to follow the patient closely during the hospital stay. Thank you for this consultation. TIFFANIE / VEE: [id number] /
[2017-08-15] MEDS: SODIUM CHLORIDE 0.45% 1,000 ML IV SCH (14:53)
--- NOTE | 2017-08-15 15:10 | P.PN ---
Subjective Progress Note Date: 08/15/17 Principal diagnosis: Sirs-like process and sepsis, severe acute metabolic acidosis related diabetic ketoacidosis, newly diagnosed diabetes mellitus, electrolyte imbalance with severe hypernatremia, elevated liver enzyme, pancreatic mass, newly diagnosed diabetes mellitus, fatty liver 08/15/2017, patient seen eval reexamined during the rounds patient is laying on the bed breathing comfortably denies any chest pain she denies any dysuria her urine has been darker yesterday today is more clear she denies any itching her appetite has been stable and improve her laboratory data medications reviewed care plan discussed primary service, LFT continued to on the rise patient is scheduled for MRI later on today GI service has been following white cell count continue to improve progressively platelet count remains on the lower side but stable, sodium is slightly up 149 patient's 3.5 renal functions are normal, the glucose remains in the mid 200 range LFTs continue to go up so as the total bilirubin very slowly now alk phos has been noted to be rising as well, hepatitis panel including A, B, and C on all negative 08/14/2017, patient seen eval reexamined during the rounds she is sitting upright on the bed breathing comfortably denies any chest pain sugar continued to run on higher side ranging from September 2 100 to high 200 range insulin doses gradually adjusted her electrolytes have improved, white cell count continue to improve, platelets are stable but still on the lower side of 70,000. Functions are stable sodium has improved to 144 chloride is 109, and her liver function however continued to be on the rise AST is over 1111 AST is 1351, with a rising total bilirubin, patient is being where by GI services as well 08/13/2017, patient seen eval examined during the rounds she has been moved out of the ICU she is seen in the stepdown unit she is sitting upright on the bed breathing comfortably denies any chest pain denies any cough or sputum production blood today have been admitted 200 range she has been on insulin long -acting as well as short-acting with meals, patient to be evaluated by gastrointestinal services or elevated liver enzymes and a pancreatic nodule labs reviewed medications reviewed, white cell count is low along with platelet count my labs from today LFTs are not performed Beyer significant thrombocytopenia is noted patient has been on subcu heparin will stop it, maintain patient on the DVT prophylaxis with early ambulation and compression devices and increase activity as tolerated maintain patient on peptic ulcer disease prophylaxis and further recommendations pending 08/12/2017, patient seen eval reexamined during the rounds clinically patient is doing slightly better in terms of the mental status and generalized weakness , patient has been evaluated in evaluated by cardiovascular services no aggressive plan has been recommended echo results are reported reviewed the ultrasound of the abdomen reviewed as well patient has a hepatic steatosis along with the lesion of 1 cm size is noted pancreatic tail, GI services has been consulted patient severe hypernatremia has improved significantly labs reviewed medications reviewed care plan discussed with patient and family present at bedside at length Patient seen eval reexamined in the ICU patient is a 57-year-old female who was transferred from [facility] her sugar was greater than 1000 that she has no history of for diabetes in the past hemoglobin A1c done back in October lost year was 5.8 she recently had a surgery done May she had some teeth extraction she was fine until yesterday when she felt weak and dizzy and she was seen in the [place] over that they noticed that sugar was greater than 1000 white count was greater than 15,000 chest x-ray was unremarkable creatinine was 1.8 this started on insulin infusion give her some fluids along with the antibiotics bicarb with a was 4 in pH was 7.01 to that EKG had some changes It did show sinus rhythm with left anterior fascicular block and 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 More importantly, the patient did not have any symptoms of chest pain or discomfort nor difficulty breathing nor dizziness or lightheadedness. This patient was feeling weak and dizzy, she had the about 10-12 extraction into succession in the last 2 weeks and she has been on amoxicillin and Motrin for that at home Objective - Vital Signs Vital signs: Vital Signs Temp 97.8 F 08/15/17 05:59 Pulse 66 08/15/17 05:59 Resp 18 08/15/17 05:59 BP 129/83 08/15/17 05:59 Pulse Ox 100 08/15/17 05:59 Intake & Output 08/14/17 08/15/17 08/15/17 18:59 06:59 18:59 Other: Voiding Method Toilet # Voids 4 1 - Exam General: The patient is awake , she looks dehydrated GCS is 15 Skin: Skin is warm and dry and no rashes or lesions are noted. Eye: Pupils are equal, round and reactive to light, extra-ocular movements are intact; there is normal conjunctiva bilaterally. Ears, nose, mouth and throat: There are moist mucous membranes and no oral lesions. Neck: The neck is supple, there is no tenderness or JVD. Cardiovascular: There is sinus tachycardia Respiratory: To auscultation bilateral, no wheezing no rhonchi no distress respiratory park noticed Gastrointestinal: Soft, non-distended, non-tender abdomen without masses or organomegaly noted. There is no rebound or guarding present. Bowel sounds are unremarkable. Back: There is no tenderness to palpation in the midline. There is no obvious deformity. Musculoskeletal: Normal ROM, no tenderness, There is no pedal edema. There is no calf tenderness or swelling. No cords were appreciated. Neurological: CN II-XII intact, Cranial nerves III through XII are intact. There are no obvious motor or sensory deficits. Coordination appears grossly intact. Speech is normal. Psychiatric: Cooperative, appropriate mood & affect, normal judgment. - Labs CBC & Chem 7: 08/15/17 07:15 08/15/17 07:15 Labs: Abnormal Lab Results - Last 24 Hours (Table) 08/14/17 08/14/17 08/15/17 Range/Units 17:09 20:43 07:15 WBC 3.2 L (3.8-10.6) k/uL Plt Count 71 L (150-450) k/uL Sodium (137-145) mmol/L Chloride (98-107) mmol/L Carbon Dioxide (22-30) mmol/L Creatinine (0.52-1.04) mg/dL POC Glucose (mg/dL) 295 H 246 H (75-99) mg/dL Total Bilirubin (0.2-1.3) mg/dL AST (14-36) U/L ALT (9-52) U/L Alkaline Phosphatase (38-126) U/L Total Protein (6.3-8.2) g/dL Albumin (3.5-5.0) g/dL 08/15/17 08/15/17 Range/Units 07:15 11:46 WBC (3.8-10.6) k/uL Plt Count (150-450) k/uL Sodium 149 H (137-145) mmol/L Chloride 108 H (98-107) mmol/L Carbon Dioxide 31 H (22-30) mmol/L Creatinine 0.44 L (0.52-1.04) mg/dL POC Glucose (mg/dL) 257 H (75-99) mg/dL Total Bilirubin 1.4 H (0.2-1.3) mg/dL AST 1314 H (14-36) U/L ALT 1645 H (9-52) U/L Alkaline Phosphatase 228 H (38-126) U/L Total Protein 5.4 L (6.3-8.2) g/dL Albumin 3.0 L (3.5-5.0) g/dL Assessment and Plan Assessment: Neutropenia and thrombocytopenia Elevated liver enzyme/acute hepatitis Hepatic steatosis/fatty liver Pancreatic tail mass 1 cm Sirs-like process versus early sepsis Severe acute metabolic acidosis related diabetic ketoacidosis Electrolyte imbalance with severe hypernatremia Elevated liver enzyme likely transaminitis with normal total bilirubin Newly diagnosed diabetes mellitus uncontrolled hyperglycemia Plan: Aggressive fluid hydration Observe off of heparin monitor labs closely Continue gentle hydration Off of insulin drip now patient is placed on Lantus along with NovoLog, doses are being adjusted DVT prophylaxis and peptic ulcer disease prophylaxis Deep breathing exercise incentive spirometry Further recommendations pending plan of care as per clinical response of the patient [place] of the liver and pancreatic area is pending Time with Patient: Greater than 30
[2017-08-15 16:54] LABS: Glucose,Whole Blood 217 mg/dL (75-99)
[2017-08-15 20:48] LABS: Glucose,Whole Blood 250 mg/dL (75-99)
[2017-08-15] MEDS: INSULIN DETEMIR 100 UNIT/ML 10 ML VIAL SQ SCH (20:57)
--- NOTE | 2017-08-16 01:15 | P.PN ---
Subjective Progress Note Date: 08/15/17 Principal diagnosis: Acute diabetic ketoacidosis Patient is a 57 old female with out a known history of diabetes was transferred from [facility] with sugar is greater than 1000. Patient had last his B A1c in October 2016 was 5.8. Patient recently had tooth extraction and infection and is currently on antibiotics for that. Patient presented to ER with complaints of generalized weakness and dizziness. Patient was found to have in DKA. Patient also having dehydration and hypernatremia. EKG showed sinus rhythm with left anterior fascicular block. Pulmonary and cardiology was consulted. 08/11/2017 currently patient is still in DKA and is on insulin drip. Anion gap is 14 at this time. Otherwise patient is having elevated liver enzymes AST and ALT which are trending up at this time. Ultrasound of the abdomen was ordered. Cardiology has seen the patient and recommended 2-D echocardiogram. Patient denied any fever or chills. No nausea vomiting or abdominal pain. No dysuria or hematuria. No cough is from production. Currently HB A1c 11.4 08/12/2017 DKA has resolved. Patient is still hyponatremic. IV fluids have been changed to half-normal saline. patient still having elevated liver enzymes. Ultrasound of the ABDOMEN SHOWED hepatic steatosis. 1 cm lesion in the pancreatic body. Extensive cholelithiasis. No fever no chills. Denied any abdominal pain. No nausea vomiting. No chest pain or shortness of breath. Patient did improve clinically. Patient is still hyperglycemic today. Currently being transferred to general medical floor. 08/13/2017 Patient did improve symptomatically. Able to tolerate diet. Blood sugar is still elevated. Her Lantus dose has been increased otherwise. We will follow up liver enzymes tomorrow. Awaiting GI recommendations. Otherwise likely discharge in next 24-48 hours pending liver enzymes trend. No other acute overnight issues. 08/14/2017 Patient is still having continuously elevated AST ALT. Otherwise no complaints of abdominal pain nausea or vomiting. Patient is tolerating oral diet. Blood sugar is fairly controlled otherwise. Patient was seen by gastrology and recommended autoimmune workup and EBV and CMV serologies. Continue to monitor transaminases tomorrow. Otherwise no fever no chills. Patient is not on any statins. Triglycerides 218 08/15/2017 Patient otherwise denied any new complaints no complaints of chest pain or shortness of breath. No nausea vomiting abdominal pain or diarrhea. AST ALT level continues to elevate. Workup for chronic liver disease is pending at this time. MRCP and MRI with liver protocol was ordered with ultrasound findings of hypoechoic pancreatic lesion. GI is following. All other review of systems negative except the above Current medications reviewed Active Medications Active Medications Generic Name Dose Route Start Last Admin Trade Name Freq PRN Reason Stop Dose Admin Sodium Chloride 1,000 mls @ 75 mls/hr 08/15/17 13:45 08/15/17 14:53 Saline 0.45% IV 75 mls/hr .[id number] VENKATESH Administration Insulin Aspart 0 unit 08/12/17 07:30 08/15/17 20:56 Novolog SQ 4 unit ACHS VENKATESH Administration Protocol Insulin Aspart 8 unit 08/14/17 13:00 08/15/17 17:12 Novolog SQ 8 unit AC-TID VENKATESH Administration Insulin Detemir 21 unit 08/15/17 13:39 08/15/17 20:57 Levemir SQ 21 unit HS VENKATESH Administration Miscellaneous Information 1 each 08/11/17 14:30 Phosphorus Per Protocol MISCELLANE DAILY PRN Per Protocol Protocol Miscellaneous Information 1 each 08/11/17 15:05 Potassium Per Protocol MISCELLANE DAILY PRN Per Protocol Protocol Miscellaneous Information 1 each 08/11/17 17:48 Magnesium Per Protocol MISCELLANE DAILY PRN Per Protocol Protocol Naloxone HCl 0.2 mg 08/10/17 16:08 Narcan IV Q2M PRN Opioid Reversal Pantoprazole Sodium 40 mg 08/13/17 07:30 08/15/17 08:06 Protonix PO Not Given [facility] Objective - Vital Signs Vital signs: Vital Signs Temp 97.5 F L 08/15/17 15:00 Pulse 76 08/15/17 15:00 Resp 18 08/15/17 15:00 BP 131/63 08/15/17 15:00 Pulse Ox 96 08/15/17 15:00 Intake & Output 08/15/17 08/15/17 08/16/17 06:59 18:59 06:59 Other: Voiding Method Toilet # Voids 1 3 - Exam PHYSICAL EXAMINATION: Patient is lying in the bed comfortably, no acute distress, awake alert and oriented.. HEENT: Normocephalic. Neck is supple. Pupils reactive. Nostrils clear. Oral cavity is moist. Ears reveal no drainage. Neck reveals no JVD, carotid bruits, or thyromegaly. CHEST EXAMINATION: Trachea is central. Symmetrical expansion. Lung luo clear to auscultation and percussion. CARDIAC: Normal S1, S2 with no gallops. No murmurs ABDOMEN: Soft. Bowel sounds normal. No organomegaly. No abdominal bruits. Extremities: reveal no edema. No clubbing or cyanosis Neurologically awake, alert, oriented x3 with well-coordinated movements. No focal deficits noted Skin: No rash or skin lesions. Psychiatric: Coperative. Nonsuicidal Musculoskeletal: No joint swelling or deformity. Normal range of motion. - Labs CBC & Chem 7: 08/15/17 07:15 08/15/17 07:15 Labs: Abnormal Lab Results - Last 24 Hours (Table) 08/15/17 08/15/17 08/15/17 Range/Units 07:15 07:15 07:15 WBC 3.2 L (3.8-10.6) k/uL Plt Count 71 L (150-450) k/uL Sodium 149 H (137-145) mmol/L Chloride 108 H (98-107) mmol/L Carbon Dioxide 31 H (22-30) mmol/L Creatinine 0.44 L (0.52-1.04) mg/dL POC Glucose (mg/dL) (75-99) mg/dL Iron Saturation 63.67 H (12.00-45.00) Ferritin 2017.2 H (10.0-291.0) ng/mL Total Bilirubin 1.4 H (0.2-1.3) mg/dL AST 1314 H (14-36) U/L ALT 1645 H (9-52) U/L Alkaline Phosphatase 228 H (38-126) U/L Total Protein 5.4 L (6.3-8.2) g/dL Total Protein (PEP) 5.3 L (6.2-8.2) g/dL Albumin 3.0 L (3.5-5.0) g/dL 08/15/17 08/15/17 08/15/17 Range/Units 11:46 16:52 20:47 WBC (3.8-10.6) k/uL Plt Count (150-450) k/uL Sodium (137-145) mmol/L Chloride (98-107) mmol/L Carbon Dioxide (22-30) mmol/L Creatinine (0.52-1.04) mg/dL POC Glucose (mg/dL) 257 H 217 H 250 H (75-99) mg/dL Iron Saturation (12.00-45.00) Ferritin (10.0-291.0) ng/mL Total Bilirubin (0.2-1.3) mg/dL AST (14-36) U/L ALT (9-52) U/L Alkaline Phosphatase (38-126) U/L Total Protein (6.3-8.2) g/dL Total Protein (PEP) (6.2-8.2) g/dL Albumin (3.5-5.0) g/dL Assessment and Plan Assessment: Acute diabetic ketoacidosis acidosis. Resolved Acute Elevated AST and ALT, alk phos and bilirubin. Gradually increasing for the past 4 days. MRCP and MRI with liver protocol was ordered. Serological workup for chronic liver disease is pending Diabetes type 2 new Diagnosis. Uncontrolled with hyperglycemia B A1c 11.4 Metabolic acidosis SIRS likely due to DKA. No evidence of sepsis noted ST_T changes in the EKG/abnormal EKG Hypernatremia due to dehydration. Sodium level improved Acute kidney injury possible ATN. Improved Hepatic steatosis and extensive gallstones 1 cm lesion in the pancreatic body Hypertension Hyperlipidemia Recent tooth extraction currently on antibiotics DVT prophylaxis Plan: Patient be continued on IV hydration. Patient was started on Lantus and preprandial insulin along with sliding scale.. Lantus dose increased to 24 units --21U and aspart 8 units 3 times a day before meals. GI was consulted due to elevated liver enzymes.. Pulmonary is following. Further recommendations based on the clinical course. Time with Patient: Greater than 30
[2017-08-16] MEDS: SODIUM CHLORIDE 0.45% 1,000 ML IV SCH ×2 (05:46→16:43)
[2017-08-16 07:33] LABS: Glucose,Whole Blood 172 mg/dL (75-99)
[2017-08-16] MEDS: INSULIN ASPART 100 UNIT/ML 1 ML 10 ML VIAL SQ SCH ×7 (08:06→20:55)
[2017-08-16] MEDS: PANTOPRAZOLE 40 MG TABLET PO SCH (08:06)
[2017-08-16 09:10] LABS: Basophils % (A) 0 %; Eosinophils # (A) 0.1 k/uL (0-0.7); Eosinophils % (A) 4 %; HCT 40.2 % (34.0-46.0); HGB 13.5 gm/dL (11.4-16.0); Lymphocytes # (A) 1.1 k/uL (1.0-4.8); Lymphocytes % (A) 34 %; MCHC 33.7 g/dL (31.0-37.0); MCV 89.2 fL (80.0-100.0); Mean Platelet Volume 8.7; Monocytes # (A) 0.1 k/uL (0-1.0); Monocytes % (A) 4 %; Neutrophils # (A) 1.7 k/uL (1.3-7.7); Neutrophils % (A) 55 %; RDW 14.3 % (11.5-15.5); WBC 3.1 k/uL (3.8-10.6)
[2017-08-16 09:15] LABS: Platelet Count 92 k/uL (150-450)
--- NOTE | 2017-08-16 09:32 | P.PN ---
Subjective Progress Note Date: 08/16/17 Principal diagnosis: Sirs-like process and sepsis, severe acute metabolic acidosis related diabetic ketoacidosis, newly diagnosed diabetes mellitus, electrolyte imbalance with severe hypernatremia, elevated liver enzyme, pancreatic mass, newly diagnosed diabetes mellitus, fatty liver 08/16/2017, patient seen eval examined during the rounds clinically doing well awake and alert breathing comfortably denies any chest pain cuff congestion shortness of breath is absent patient denies any abdominal discomfort and pain patient is tolerating by mouth very well her urine and stool color normal 08/15/2017, patient seen eval reexamined during the rounds patient is laying on the bed breathing comfortably denies any chest pain she denies any dysuria her urine has been darker yesterday today is more clear she denies any itching her appetite has been stable and improve her laboratory data medications reviewed care plan discussed primary service, LFT continued to on the rise patient is scheduled for MRI later on today GI service has been following white cell count continue to improve progressively platelet count remains on the lower side but stable, sodium is slightly up 149 patient's 3.5 renal functions are normal, the glucose remains in the mid 200 range LFTs continue to go up so as the total bilirubin very slowly now alk phos has been noted to be rising as well, hepatitis panel including A, B, and C on all negative 08/14/2017, patient seen eval reexamined during the rounds she is sitting upright on the bed breathing comfortably denies any chest pain sugar continued to run on higher side ranging from May 2 100 to high 200 range insulin doses gradually adjusted her electrolytes have improved, white cell count continue to improve, platelets are stable but still on the lower side of 70,000. Functions are stable sodium has improved to 144 chloride is 109, and her liver function however continued to be on the rise AST is over 1111 AST is 1351, with a rising total bilirubin, patient is being where by GI services as well 08/13/2017, patient seen eval examined during the rounds she has been moved out of the ICU she is seen in the stepdown unit she is sitting upright on the bed breathing comfortably denies any chest pain denies any cough or sputum production blood today have been admitted 200 range she has been on insulin long -acting as well as short-acting with meals, patient to be evaluated by gastrointestinal services or elevated liver enzymes and a pancreatic nodule labs reviewed medications reviewed, white cell count is low along with platelet count my labs from today LFTs are not performed [place] significant thrombocytopenia is noted patient has been on subcu heparin will stop it, maintain patient on the DVT prophylaxis with early ambulation and compression devices and increase activity as tolerated maintain patient on peptic ulcer disease prophylaxis and further recommendations pending 08/12/2017, patient seen eval reexamined during the rounds clinically patient is doing slightly better in terms of the mental status and generalized weakness , patient has been evaluated in evaluated by cardiovascular services no aggressive plan has been recommended echo results are reported reviewed the ultrasound of the abdomen reviewed as well patient has a hepatic steatosis along with the lesion of 1 cm size is noted pancreatic tail, GI services has been consulted patient severe hypernatremia has improved significantly labs reviewed medications reviewed care plan discussed with patient and family present at bedside at length Patient seen eval reexamined in the ICU patient is a 57-year-old female who was transferred from [facility] her sugar was greater than 1000 that she has no history of for diabetes in the past hemoglobin A1c done back in October lost year was 5.8 she recently had a surgery done September she had some teeth extraction she was fine until yesterday when she felt weak and dizzy and she was seen in the [place] over that they noticed that sugar was greater than 1000 white count was greater than 15,000 chest x-ray was unremarkable creatinine was 1.8 this started on insulin infusion give her some fluids along with the antibiotics bicarb with a was 4 in pH was 7.01 to that EKG had some changes It did show sinus rhythm with left anterior fascicular block and possible old inferior PR. More importantly, the patient did not have any symptoms of chest pain or discomfort nor difficulty breathing nor dizziness or lightheadedness. This patient was feeling weak and dizzy, she had the about 10-12 extraction into succession in the last 2 weeks and she has been on amoxicillin and Motrin for that at home Objective - Vital Signs Vital signs: Vital Signs Temp 98.4 F 08/16/17 06:16 Pulse 68 08/16/17 06:16 Resp 18 08/16/17 06:16 BP 122/78 08/16/17 06:16 Pulse Ox 98 08/16/17 06:16 Intake & Output 08/15/17 08/16/17 08/16/17 18:59 06:59 18:59 Other: Voiding Method Toilet # Voids 3 2 - Exam General: The patient is awake , she looks dehydrated GCS is 15 Skin: Skin is warm and dry and no rashes or lesions are noted. Eye: Pupils are equal, round and reactive to light, extra-ocular movements are intact; there is normal conjunctiva bilaterally. Ears, nose, mouth and throat: There are moist mucous membranes and no oral lesions. Neck: The neck is supple, there is no tenderness or JVD. Cardiovascular: There is sinus tachycardia Respiratory: To auscultation bilateral, no wheezing no rhonchi no distress respiratory park noticed Gastrointestinal: Soft, non-distended, non-tender abdomen without masses or organomegaly noted. There is no rebound or guarding present. Bowel sounds are unremarkable. Back: There is no tenderness to palpation in the midline. There is no obvious deformity. Musculoskeletal: Normal ROM, no tenderness, There is no pedal edema. There is no calf tenderness or swelling. No cords were appreciated. Neurological: CN II-XII intact, Cranial nerves III through XII are intact. There are no obvious motor or sensory deficits. Coordination appears grossly intact. Speech is normal. Psychiatric: Cooperative, appropriate mood & affect, normal judgment. - Labs CBC & Chem 7: 08/16/17 08:37 08/15/17 07:15 Labs: Abnormal Lab Results - Last 24 Hours (Table) 08/15/17 08/15/17 08/15/17 Range/Units 07:15 11:46 16:52 WBC (3.8-10.6) k/uL Plt Count (150-450) k/uL POC Glucose (mg/dL) 257 H 217 H (75-99) mg/dL Iron Saturation 63.67 H (12.00-45.00) Ferritin 2017.2 H (10.0-291.0) ng/mL Total Protein (PEP) 5.3 L (6.2-8.2) g/dL 08/15/17 08/16/17 08/16/17 Range/Units 20:47 07:30 08:37 WBC 3.1 L (3.8-10.6) k/uL Plt Count 92 L (150-450) k/uL POC Glucose (mg/dL) 250 H 172 H (75-99) mg/dL Iron Saturation (12.00-45.00) Ferritin (10.0-291.0) ng/mL Total Protein (PEP) (6.2-8.2) g/dL Assessment and Plan Assessment: Neutropenia and thrombocytopenia Elevated liver enzyme/acute hepatitis Hepatic steatosis/fatty liver Pancreatic tail mass 1 cm Sirs-like process versus early sepsis Severe acute metabolic acidosis related diabetic ketoacidosis Electrolyte imbalance with severe hypernatremia Elevated liver enzyme likely transaminitis with normal total bilirubin Newly diagnosed diabetes mellitus uncontrolled hyperglycemia Plan: Aggressive fluid hydration Observe off of heparin monitor labs closely Continue gentle hydration Off of insulin drip now patient is placed on Lantus along with NovoLog, doses are being adjusted DVT prophylaxis and peptic ulcer disease prophylaxis Deep breathing exercise incentive spirometry Further recommendations pending plan of care as per clinical response of the patient [place] of the liver and pancreatic area is pending Time with Patient: Greater than 30
[2017-08-16 09:36] LABS: Albumin 3.1 g/dL (3.5-5.0); Alkaline Phosphatase 267 U/L (38-126); Anion Gap 9 mmol/L; Blood Urea Nitrogen 6 mg/dL (7-17); Calcium 8.9 mg/dL (8.4-10.2); Carbon Dioxide 30 mmol/L (22-30); Chloride 104 mmol/L (98-107); Glucose 266 mg/dL (74-99); Potassium 3.8 mmol/L (3.5-5.1); Sodium 143 mmol/L (137-145); Total Bilirubin 1.3 mg/dL (0.2-1.3); Total Protein 5.6 g/dL (6.3-8.2)
[2017-08-16 09:47] LABS: AST 1179 U/L (14-36)
[2017-08-16 09:48] LABS: ALT 1761 U/L (9-52)
[2017-08-16 11:30] LABS: Glucose,Whole Blood 242 mg/dL (75-99)
[2017-08-16 14:08] LABS: Smooth Muscle Antibody 23 UNITS (<20)
--- NOTE | 2017-08-16 15:13 | MR ---
EXAMINATION TYPE: MR pancreas without and with contrast MRCP DATE OF EXAM: 08/16/2017 COMPARISON: Ultrasound 08/12/2017 HISTORY: 57-year-old female Elevated LFT's, abnormal US Technique: Multiplanar, multisequence images of the abdomen were obtained before and after administra tion of 7.5 mL intravenous Gadavist gadolinium contrast. Additional highly T2-weighted sequences wer e obtained. 3-D reconstructions generated on a dedicated independent workstation. FINDINGS: Liver measures 18.9 cm craniocaudal. T1 out of phase sequence shows mild signal dropout suggesting mi ld fatty infiltration. No focal liver lesion. Portal venous system is patent. MRCP images show normal caliber bile duct and normal intrahepatic biliary system. Normal appearance t o the main pancreatic duct. No cystic lesion seen communicating with the main pancreatic duct. No cystic pancreatic lesion is identified and no suspicious enhancing pancreatic lesion is seen. Numerous gallstones are present measuring up to 1.3 cm. No abnormal gallbladder distention. Spleen mildly enlarged at 14.0 cm. Adrenal glands and left kidney are within normal limits. Tiny 6 mm cortical cyst upper pole right kid meaghan. A few enrique hepatic and portacaval lymph nodes measure up to 8 mm. Otherwise, no upper abdominal lymp hadenopathy, ascites fluid, or gross bowel abnormality. IMPRESSION: 1. Mild hepatomegaly (18.9 cm). Opposed phase imaging suggests mild fatty infiltration. 2. Cholelithiasis without acute cholecystitis. 3. No biliary ductal dilatation. 4. No cystic or enhancing pancreatic lesion identified to correspond to the 1 cm lesion seen on ultra sound. Six-month follow-up ultrasound to reassess. 5. Mild splenomegaly (14.0 cm).
[2017-08-16 17:33] LABS: Glucose,Whole Blood 253 mg/dL (75-99)
--- NOTE | 2017-08-16 17:38 | PN ---
PROGRESS NOTE DATE OF DICTATION: 08/16/2017 The patient is a 57-year-old pleasant white female admitted to the hospital 5 days ago with new-onset diabetes mellitus, uncontrolled hyperglycemia. While in the hospital she was noted to have mild elevation of serum transaminases, and over the last 5 days they have been progressively getting worse. Her LFTs today showed an AST of 1179 and ALT of 1769, alkaline phosphatase 267, and T-bilirubin is 1.3. Hepatitis serologies for A, B and C negative. CMV IgM antibody is negative. EBV IgM antibody is negative. Antinuclear antibody is negative. Ferritin was elevated at 2000 and iron saturation was 67%. Alpha-1 antitrypsin level was normal. Anti-smooth muscle antibody was slightly elevated at 23. Serum protein electrophoresis is still pending. Rest of the labs are still pending. She continues to remain asymptomatic. She is scheduled for an MRI of the pancreas and MRCP today. PHYSICAL EXAMINATION: She appears comfortable. No apparent distress. VITAL SIGNS: Stable. Blood pressure is 131/63, pulse rate 76, temperature 97.5. HEENT EXAMINATION: Unremarkable. Conjunctivae pink. Sclerae anicteric. Oral cavity no lesions. NECK: No JVD or lymph node enlargement. Chest was clear to auscultation. HEART: Regular rate and rhythm. ABDOMEN: Soft. Bowel sounds are positive. No organomegaly. EXTREMITIES: No pedal edema. SKIN: No rashes. NEUROLOGIC: Alert and oriented x3. No focal deficits. LABS FROM TODAY: WBC 3.1, hemoglobin 13.5, platelets 92,000. ALT and AST are 1179 and 1761, respectively. T-bilirubin 1.3, alkaline phosphatase 267. IMPRESSION: This is a lady who presented to the hospital with uncontrolled hyperglycemia/new-onset diabetes mellitus and noted to have mild elevation of serum transaminases, which over the last 5 days have increased significantly into the 1000 range. She has no history of chronic liver disease. Workup for chronic liver disease is in progress, and so far hepatitis serologies for A, B and C, CMV and EBV IgM antibodies are negative. Antinuclear antibody was negative. Ferritin was elevated and so was iron saturation, which could be explained on the basis of acute phase reactant. She was scheduled for an MRI of the pancreas; she just got back from the test and results are still pending. RECOMMENDATIONS: 1. Repeat labs in the morning. 2. Await results of imaging studies. 3. If her serum transaminases improve by tomorrow, she can be discharged home and further workup can be done on an outpatient basis. If her serum transaminases do not improve, we will plan on a liver biopsy. Thank you for this consultation. TIFFANIE / VEE: [id number] /
--- NOTE | 2017-08-16 18:16 | P.PN ---
Subjective Progress Note Date: 08/16/17 Principal diagnosis: Surgeries/sepsis; severe acute metabolic acidosis secondary to diabetic ketoacidosis; newly diagnosed diabetes mellitus; electrolyte imbalance with severe hyponatremia; elevated liver enzymes; pancreatic mass; fatty liver. Acute diabetic ketoacidosis Patient is a 57 old female with out a known history of diabetes was transferred from [facility] with sugar is greater than 1000. Patient had last his B A1c in October 2016 was 5.8. Patient recently had tooth extraction and infection and is currently on antibiotics for that. Patient presented to ER with complaints of generalized weakness and dizziness. Patient was found to have in DKA. Patient also having dehydration and hypernatremia. EKG showed sinus rhythm with left anterior fascicular block. Pulmonary and cardiology was consulted. 08/16/2017, patient seen eval examined during the rounds clinically doing well awake and alert breathing comfortably denies any chest pain cuff congestion shortness of breath is absent patient denies any abdominal discomfort and pain patient is tolerating by mouth very well her urine and stool color normal Objective - Vital Signs Vital signs: Vital Signs Temp 98.4 F 08/16/17 06:16 Pulse 68 08/16/17 06:16 Resp 18 08/16/17 06:16 BP 122/78 08/16/17 06:16 Pulse Ox 98 08/16/17 06:16 Intake & Output 08/15/17 08/16/17 08/16/17 18:59 06:59 18:59 Other: Voiding Method Toilet # Voids 3 2 3 - Exam On exam, alert and oriented x3. HEENT: Conjunctivae normal. eyes normal. NECK: No JVD. No thyroid enlargement. No LNs CARDIOVASCULAR: S1, S2 muffled. No murmur RESPIRATION: Breath sounds diminished in the bases. No rhonchi or crackles. No bronchial breathing. ABDOMEN: Soft, nontender . No guarding. no masses palpable. No ascites, No hepatosplenomegaly.Bowel sounds heard. LEGS: No edema. no swelling NERVOUS SYSTEM: Cranial N 2-12 grossly normal. Moves all 4 limbs. No focal deficits. No sensory deficit. No signs of cerebellar dysfucntion. Skin: no ulcer no rash Joints: No active swelling. No inflammation. Lymphatic system. No LN neck axilla or groin. - Labs CBC & Chem 7: 08/16/17 08:37 08/16/17 08:37 Labs: Abnormal Lab Results - Last 24 Hours (Table) 08/15/17 08/15/17 08/16/17 Range/Units 07:15 20:47 07:30 WBC (3.8-10.6) k/uL Plt Count (150-450) k/uL BUN (7-17) mg/dL Creatinine (0.52-1.04) mg/dL Glucose (74-99) mg/dL POC Glucose (mg/dL) 250 H 172 H (75-99) mg/dL AST (14-36) U/L ALT (9-52) U/L Alkaline Phosphatase (38-126) U/L Total Protein (6.3-8.2) g/dL Albumin (3.5-5.0) g/dL Anti-Smooth Muscle Ab 23 H (<20) UNITS 08/16/17 08/16/17 08/16/17 Range/Units 08:37 08:37 11:28 WBC 3.1 L (3.8-10.6) k/uL Plt Count 92 L (150-450) k/uL BUN 6 L (7-17) mg/dL Creatinine 0.49 L (0.52-1.04) mg/dL Glucose 266 H (74-99) mg/dL POC Glucose (mg/dL) 242 H (75-99) mg/dL AST 1179 H (14-36) U/L ALT 1761 H (9-52) U/L Alkaline Phosphatase 267 H (38-126) U/L Total Protein 5.6 L (6.3-8.2) g/dL Albumin 3.1 L (3.5-5.0) g/dL Anti-Smooth Muscle Ab (<20) UNITS 08/16/17 Range/Units 17:31 WBC (3.8-10.6) k/uL Plt Count (150-450) k/uL BUN (7-17) mg/dL Creatinine (0.52-1.04) mg/dL Glucose (74-99) mg/dL POC Glucose (mg/dL) 253 H (75-99) mg/dL AST (14-36) U/L ALT (9-52) U/L Alkaline Phosphatase (38-126) U/L Total Protein (6.3-8.2) g/dL Albumin (3.5-5.0) g/dL Anti-Smooth Muscle Ab (<20) UNITS Assessment and Plan Assessment: 1. Neutropenia and thrombocytopenia 2. Elevated liver enzyme/acute hepatitis 3. Hepatic steatosis/fatty liver 4. Pancreatic tail mass 1 cm 5. Sirs-like process versus early sepsis 6. Severe acute metabolic acidosis related diabetic ketoacidosis 7. Electrolyte imbalance with severe hypernatremia 8. Elevated liver enzyme likely transaminitis with normal total bilirubin 9. Newly diagnosed diabetes mellitus uncontrolled hyperglycemia Plan: We will continue with Aggressive fluid hydration; continue to Observe off of heparin monitor labs closely Patient remains Off of insulin drip now patient is placed on Lantus along with NovoLog, doses are being adjusted DVT prophylaxis and peptic ulcer disease prophylaxis Deep breathing exercise incentive spirometry Further recommendations pending plan of care as per clinical response of the patient MRI is done and pending. Time with Patient: Greater than 30 Time with Patient: Greater than 30
[2017-08-16 20:38] LABS: Glucose,Whole Blood 330 mg/dL (75-99)
[2017-08-16] MEDS: INSULIN DETEMIR 100 UNIT/ML 10 ML VIAL SQ SCH (20:55)
[2017-08-17] MEDS: SODIUM CHLORIDE 0.45% 1,000 ML IV SCH (05:52)
[2017-08-17 07:31] LABS: Glucose,Whole Blood 129 mg/dL (75-99)
[2017-08-17 07:37] LABS: Basophils % (A) 1 %; Eosinophils # (A) 0.1 k/uL (0-0.7); Eosinophils % (A) 3 %; HCT 38.9 % (34.0-46.0); HGB 13.5 gm/dL (11.4-16.0); Lymphocytes # (A) 1.4 k/uL (1.0-4.8); Lymphocytes % (A) 41 %; MCH 30.8 pg (25.0-35.0); MCHC 34.7 g/dL (31.0-37.0); MCV 88.9 fL (80.0-100.0); Mean Platelet Volume 8.3; Monocytes # (A) 0.2 k/uL (0-1.0); Monocytes % (A) 5 %; Neutrophils # (A) 1.6 k/uL (1.3-7.7); Neutrophils % (A) 48 %; Platelet Count 129 k/uL (150-450); RBC 4.38 m/uL (3.80-5.40); RDW 14.8 % (11.5-15.5); WBC 3.4 k/uL (3.8-10.6)
[2017-08-17] MEDS: INSULIN ASPART 100 UNIT/ML 1 ML 10 ML VIAL SQ SCH ×6 (07:44→17:57)
[2017-08-17 07:49] LABS: Alkaline Phosphatase 267 U/L (38-126); Anion Gap 8 mmol/L; Bilirubin, Delta 0.7 mg/dL (0.0-0.2); Bilirubin,Unconjugated 0.3 mg/dL (0.0-1.1); Blood Urea Nitrogen 5 mg/dL (7-17); Calcium 8.9 mg/dL (8.4-10.2); Carbon Dioxide 30 mmol/L (22-30); Chloride 108 mmol/L (98-107); Glucose 124 mg/dL (74-99); Sodium 146 mmol/L (137-145); Total Protein 5.5 g/dL (6.3-8.2)
[2017-08-17 07:50] LABS: Potassium 3.6 mmol/L (3.5-5.1)
[2017-08-17] MEDS: PANTOPRAZOLE 40 MG TABLET PO SCH (07:59)
[2017-08-17 08:01] LABS: ALT 1671 U/L (9-52); AST 997 U/L (14-36)
[2017-08-17 11:17] LABS: Glucose,Whole Blood 214 mg/dL (75-99)
--- NOTE | 2017-08-17 12:15 | PN ---
PROGRESS NOTE DATE OF DICTATION: August 17, 2017 Patient is a 57-year-old pleasant white female newly diagnosed diabetes, was admitted to hospital with uncontrolled hyperglycemia. She was noted to have elevated serum transaminases which were gradually increasing over the last 1 week. She is asymptomatic. She did have an MRI of the pancreas done yesterday because of an abnormality noted on the abdomen. MRI of the pancreas was unremarkable. This morning she reports no symptoms. PHYSICAL EXAMINATION: Appears comfortable in no apparent distress. Vital signs stable. Blood pressure is 116/70, pulse rate 61, temperature 98.3. HEENT examination unremarkable. Conjunctivae pink. Sclerae anicteric. Oral cavity no lesions. No JVD or lymph node enlargement. Chest was clear to auscultation. HEART: Regular rate and rhythm. ABDOMEN: Soft. Bowel sounds are positive. No organomegaly. Extremities no pedal edema. Skin no rashes. NEUROLOGIC: Alert and oriented x3. No focal deficits. LABS: AST is down to 97, ALT is down to 167, T-bilirubin is 1, and alkaline phosphatase is 267. So far [place] is negative. Anti smooth muscle antibody slightly positive. CMV and EBV IgM antibodies are negative. Hepatitis serologies for A, B, and C are negative. Antinuclear antibody was negative. Iron saturation and serum ferritin were elevated, alpha 1 antitrypsin were negative, protein electrophoresis is pending. IMPRESSION: Acute hepatitis/acute hepatocellular injury most likely medication-related. So far, workup for chronic liver disease is negative. Infectious serologies for hepatitis A, B, C, EBV and CMV have been negative. In any event, her serum transaminases are gradually improving and patient remains asymptomatic. RECOMMENDATIONS: 1. DC home today. 2. The LFTs on a weekly basis. 3. She will follow up in office in 1 week from now. 4. Since the transaminases are improving, we will hold off on the liver biopsy and consider this on outpatient basis based on the clinical course. The plan was discussed with the patient. She is agreeable to it. Thank you for this consultation. MMEDGARL / KAHLILN: [id number] /
[2017-08-17 15:06] VITALS: BP 104/44; PULSE 73; RESP 24; TEMP 97.6
--- NOTE | 2017-08-17 15:25 | P.PN ---
Subjective Progress Note Date: 08/17/17 Principal diagnosis: Sirs-like process and sepsis, severe acute metabolic acidosis related diabetic ketoacidosis, newly diagnosed diabetes mellitus, electrolyte imbalance with severe hypernatremia, elevated liver enzyme, pancreatic mass, newly diagnosed diabetes mellitus, fatty liver 08/17/2017, patient seen eval reexamined during the rounds clinically doing well awake and alert breathing comfortably GI service has been following labs reviewed medications reviewed, patient did have a pancreatic MRI, hepatomegaly along with Kiesha UTS is and cholecystitis has been seen with splenomegaly GI service recommended close monitoring and follow-up 08/16/2017, patient seen eval examined during the rounds clinically doing well awake and alert breathing comfortably denies any chest pain cuff congestion shortness of breath is absent patient denies any abdominal discomfort and pain patient is tolerating by mouth very well her urine and stool color normal 08/15/2017, patient seen eval reexamined during the rounds patient is laying on the bed breathing comfortably denies any chest pain she denies any dysuria her urine has been darker yesterday today is more clear she denies any itching her appetite has been stable and improve her laboratory data medications reviewed care plan discussed primary service, LFT continued to on the rise patient is scheduled for MRI later on today GI service has been following white cell count continue to improve progressively platelet count remains on the lower side but stable, sodium is slightly up 149 patient's 3.5 renal functions are normal, the glucose remains in the mid 200 range LFTs continue to go up so as the total bilirubin very slowly now alk phos has been noted to be rising as well, hepatitis panel including A, B, and C on all negative 08/14/2017, patient seen eval reexamined during the rounds she is sitting upright on the bed breathing comfortably denies any chest pain sugar continued to run on higher side ranging from September 2 100 to high 200 range insulin doses gradually adjusted her electrolytes have improved, white cell count continue to improve, platelets are stable but still on the lower side of 70,000. Functions are stable sodium has improved to 144 chloride is 109, and her liver function however continued to be on the rise AST is over 1111 AST is 1351, with a rising total bilirubin, patient is being where by GI services as well 08/13/2017, patient seen eval examined during the rounds she has been moved out of the ICU she is seen in the stepdown unit she is sitting upright on the bed breathing comfortably denies any chest pain denies any cough or sputum production blood today have been admitted 200 range she has been on insulin long -acting as well as short-acting with meals, patient to be evaluated by gastrointestinal services or elevated liver enzymes and a pancreatic nodule labs reviewed medications reviewed, white cell count is low along with platelet count my labs from today LFTs are not performed [place] significant thrombocytopenia is noted patient has been on subcu heparin will stop it, maintain patient on the DVT prophylaxis with early ambulation and compression devices and increase activity as tolerated maintain patient on peptic ulcer disease prophylaxis and further recommendations pending 08/12/2017, patient seen eval reexamined during the rounds clinically patient is doing slightly better in terms of the mental status and generalized weakness , patient has been evaluated in evaluated by cardiovascular services no aggressive plan has been recommended echo results are reported reviewed the ultrasound of the abdomen reviewed as well patient has a hepatic steatosis along with the lesion of 1 cm size is noted pancreatic tail, GI services has been consulted patient severe hypernatremia has improved significantly labs reviewed medications reviewed care plan discussed with patient and family present at bedside at length Patient seen eval reexamined in the ICU patient is a 57-year-old female who was transferred from [facility] her sugar was greater than 1000 that she has no history of for diabetes in the past hemoglobin A1c done back in October lost year was 5.8 she recently had a surgery done September she had some teeth extraction she was fine until yesterday when she felt weak and dizzy and she was seen in the [facility] over that they noticed that sugar was greater than 1000 white count was greater than 15,000 chest x-ray was unremarkable creatinine was 1.8 this started on insulin infusion give her some fluids along with the antibiotics bicarb with a was 4 in pH was 7.01 to that EKG had some changes It did show sinus rhythm with 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 More importantly, the patient did not have any symptoms of chest pain or discomfort nor difficulty breathing nor dizziness or lightheadedness. This patient was feeling weak and dizzy, she had the about 10-12 extraction into succession in the last 2 weeks and she has been on amoxicillin and Motrin for that at home Objective - Vital Signs Vital signs: Vital Signs Temp 97.6 F 08/17/17 15:00 Pulse 73 08/17/17 15:00 Resp 24 08/17/17 15:00 BP 104/44 08/17/17 15:00 Pulse Ox 97 08/17/17 15:00 Intake & Output 08/16/17 08/17/17 08/17/17 18:59 06:59 18:59 Intake Total 300 Output Total 2 Balance 300 -2 Weight 72.8 kg Intake: Oral 300 Output: Urine 2 Other: Voiding Method Toilet # Voids 3 1 - Exam General: The patient is awake , she looks dehydrated GCS is 15 Skin: Skin is warm and dry and no rashes or lesions are noted. Eye: Pupils are equal, round and reactive to light, extra-ocular movements are intact; there is normal conjunctiva bilaterally. Ears, nose, mouth and throat: There are moist mucous membranes and no oral lesions. Neck: The neck is supple, there is no tenderness or JVD. Cardiovascular: There is sinus tachycardia Respiratory: To auscultation bilateral, no wheezing no rhonchi no distress respiratory park noticed Gastrointestinal: Soft, non-distended, non-tender abdomen without masses or organomegaly noted. There is no rebound or guarding present. Bowel sounds are unremarkable. Back: There is no tenderness to palpation in the midline. There is no obvious deformity. Musculoskeletal: Normal ROM, no tenderness, There is no pedal edema. There is no calf tenderness or swelling. No cords were appreciated. Neurological: CN II-XII intact, Cranial nerves III through XII are intact. There are no obvious motor or sensory deficits. Coordination appears grossly intact. Speech is normal. Psychiatric: Cooperative, appropriate mood & affect, normal judgment. - Labs CBC & Chem 7: 08/17/17 06:57 08/17/17 06:57 Labs: Abnormal Lab Results - Last 24 Hours (Table) 08/16/17 08/16/17 08/17/17 Range/Units 17:31 20:29 06:57 WBC 3.4 L (3.8-10.6) k/uL Plt Count 129 L (150-450) k/uL Sodium (137-145) mmol/L Chloride (98-107) mmol/L BUN (7-17) mg/dL Creatinine (0.52-1.04) mg/dL Glucose (74-99) mg/dL POC Glucose (mg/dL) 253 H 330 H (75-99) mg/dL Delta Bilirubin (0.0-0.2) mg/dL AST (14-36) U/L ALT (9-52) U/L Alkaline Phosphatase (38-126) U/L Total Protein (6.3-8.2) g/dL Albumin (3.5-5.0) g/dL 08/17/17 08/17/17 08/17/17 Range/Units 06:57 07:25 11:15 WBC (3.8-10.6) k/uL Plt Count (150-450) k/uL Sodium 146 H (137-145) mmol/L Chloride 108 H (98-107) mmol/L BUN 5 L (7-17) mg/dL Creatinine 0.49 L (0.52-1.04) mg/dL Glucose 124 H (74-99) mg/dL POC Glucose (mg/dL) 129 H 214 H (75-99) mg/dL Delta Bilirubin 0.7 H (0.0-0.2) mg/dL AST 997 H (14-36) U/L ALT 1671 H (9-52) U/L Alkaline Phosphatase 267 H (38-126) U/L Total Protein 5.5 L (6.3-8.2) g/dL Albumin 3.0 L (3.5-5.0) g/dL Assessment and Plan Assessment: Neutropenia and thrombocytopenia Elevated liver enzyme/acute hepatitis Cholelithiasis/cholecystitis Hepatic steatosis/fatty liver Pancreatic tail mass 1 cm Sirs-like process versus early sepsis Severe acute metabolic acidosis related diabetic ketoacidosis Electrolyte imbalance with severe hypernatremia Elevated liver enzyme likely transaminitis with normal total bilirubin Newly diagnosed diabetes mellitus uncontrolled hyperglycemia Plan: Encourage oral rehydration Observe off of heparin monitor labs closely Continue gentle hydration Off of insulin drip now patient is placed on Lantus along with NovoLog, doses are being adjusted DVT prophylaxis and peptic ulcer disease prophylaxis Deep breathing exercise incentive spirometry Further recommendations pending plan of care as per clinical response of the patient [place] of the liver and pancreatic area is pending Time with Patient: Greater than 30
[2017-08-17 17:06] LABS: Glucose,Whole Blood 208 mg/dL (75-99)
[2017-08-19 10:38] LABS: Albumin 3.05 g/dL (3.80-4.90); Gamma Globulin 0.63 g/dL (0.70-1.50)
--- NOTE | 2017-08-19 15:25 | CDI ---
Documentation Clarification Form Date: 08/19/2017 12:00:00 AM From: FELIX Davidson; Dara Hairston Color Consultant Phone: If you have a question about this query, please contact Dara Hairston Color Consultant at [phone] between 8am and 5pm. Admit Date: 08/10/2017 4:08:00 PM Patient Name: Zara Roberto Visit Number: [id number] Discharge Date: 08/17/2017 ATTENTION: The Clinical Documentation Specialists (CDI) and [facility] Coding Staff appreciate your assistance in clarifying documentation. Please respond to the clarification below the line at the bottom and electronically sign. The CDI & [facility] Coding staff will review the response and follow-up if needed. Please note: Queries are made part of the Legal Health Record. If you have any questions, please contact the author of this message via ITS. Dr. Ida Crews There is conflicting documentation in the record that needs clarification for accurate coding. There is documentatio in the record of both early sepsis and no sepsis, with final progress note being sirs-like process versus early sepsis. Patient history/risk factors: Presented in DKA. Clinical Indicators: Weak and dizziness. Lab findings: Glucose 487 and A1c of 5.8, WBC 12.9, Sodium 163 Vital Signs: temp 97.9, pulse 112, resp 22, BP 125/75 In your professional opinion, can you please clarify: Sepsis ruled in Sepsis ruled out Other, please specify Unable to determine Unable to determine MTDD
== END 2017-08-17 19:08 | disposition home or self-care (01) | DRG 637 ==
LOC: EC 14:52 → 6ICU 16:08 → 4MS4W 08-12 15:20
PROVIDERS: ADMIT Hospitalist; ATTEND Hospitalist
DX: E11.10 Type 2 diabetes mellitus with ketoacidosis without coma (principal); N17.0 Acute kidney failure with tubular necrosis; E87.0 Hyperosmolality and hypernatremia; D69.6 Thrombocytopenia, unspecified; D70.9 Neutropenia, unspecified; R65.10 Systemic inflammatory response syndrome (SIRS) of non-infectious origin without acute organ dysfunction; K80.10 Calculus of gallbladder with chronic cholecystitis without obstruction; K76.0 Fatty (change of) liver, not elsewhere classified; B17.9 Acute viral hepatitis, unspecified; E86.0 Dehydration; E78.5 Hyperlipidemia, unspecified; I10 Essential (primary) hypertension; I25.2 Old myocardial infarction; I44.4 Left anterior fascicular block; Z79.4 Long term (current) use of insulin; Z83.3 Family history of diabetes mellitus; Z87.891 Personal history of nicotine dependence; Z79.2 Long term (current) use of antibiotics; Z79.1 Long term (current) use of non-steroidal anti-inflammatories (NSAID); K86.9 Disease of pancreas, unspecified
CPT/HCPCS: 36415; 36600; 71045; 74183; 76705; 80048; 80053; 80061; 80074; 80076; 81001; 82009; 82103; 82150; 82390; 82728; 82805; 83036; 83516; 83540; 83550; 83690; 83735; 83930; 84100; 84165; 84450; 84460; 84484; 85025; 86038; 86645; 86665; 93005; 93306; 99285